=== PATIENT | female | born 1955 | race Caucasian/White ===

== ENCOUNTER → 2019-02-09 16:51 | Outpatient (CLI) | payer OTHER, SELFPAY ==
--- NOTE | 2019-02-09 16:54 | DI.RAD.S_ITS ---
PROCEDURE: XR LUMBAR SPINE 2-3V INDICATIONS: lbp TECHNIQUE: 3 views of the lumbar spine were acquired. COMPARISON: None. FINDINGS: Bones: 5 [id number] vertebrae are present. There is normal bony alignment. No vertebral body compression fractures. No suspicious bony lesions. Mild degenerative disease seen from thoracolumbar junction inferiorly to the L5-S1 level where moderate such degeneration is present. Facet osteoarthritis from L4-5 through L5-S1 is moderate. There is potential for mild spinal and foraminal stenosis at L5-S1. Soft tissues: Overlying bowel gas pattern is normal. No suspicious soft tissue calcifications. IMPRESSION: Potential for mild spinal and foraminal stenosis due to the degenerative changes discussed above at L5-S1 but more superiorly nerve root impingement would not be suspected. Dictated by: Gray Castaneda M.D. on 02/09/2019 at 17:37 Approved by: Gray Castaneda M.D. on 02/09/2019 at 17:38
== END ==
PROVIDERS: PCP Family Medicine; Visit Provider Family Medicine
DX: R29.898 Other symptoms and signs involving the musculoskeletal system (principal)
CPT/HCPCS: 72100

== ENCOUNTER → 2019-02-15 19:48 | Outpatient (CLI) | payer OTHER, SELFPAY ==
--- NOTE | 2019-02-15 19:51 | DI.RAD.S_ITS ---
PROCEDURE: XR KNEE LT 3V INDICATIONS: bilateral knee pain TECHNIQUE: 3 views of the knee were acquired. COMPARISON: None. FINDINGS: Bones: No fractures or dislocations. No suspicious bony lesions. There is mild to moderate tricompartmental degenerative joint disease. Soft tissues: No joint effusion. No suspicious soft tissue calcifications. IMPRESSION: Mild to moderate degenerative joint disease. Dictated by: Magda Jensen M.D. on 02/16/2019 at 9:54 Approved by: Magda Jensen M.D. on 02/16/2019 at 9:55
--- NOTE | 2019-02-15 19:51 | DI.RAD.S_ITS ---
PROCEDURE: XR KNEE RT 3V INDICATIONS: bilateral knee pain TECHNIQUE: 3 views of the knee were acquired. COMPARISON: None. FINDINGS: Bones: No fractures or dislocations. No suspicious bony lesions. There is severe tricompartmental degenerative joint disease. Soft tissues: Small joint effusion. No suspicious soft tissue calcifications. IMPRESSION: Severe degenerative joint disease. Dictated by: Magda Jensen M.D. on 02/16/2019 at 9:45 Approved by: Magda Jensen M.D. on 02/16/2019 at 9:54
== END ==
PROVIDERS: PCP Family Medicine; Visit Provider Nurse Practitioner
DX: M25.561 Pain in right knee (principal); M25.562 Pain in left knee; M17.0 Bilateral primary osteoarthritis of knee
CPT/HCPCS: 73562

== ENCOUNTER → 2019-11-25 12:20 | Outpatient (CLI) | payer OTHER, SELFPAY ==
--- NOTE | 2019-11-25 12:22 | DI.US.S_ITS ---
PROCEDURE: US PERIPH VENOUS LOW EXTREM LT INDICATIONS: LEFT LOWER LEG SWELLING PAIN TECHNIQUE: Real-time imaging, as well as color and pulse Doppler interrogation, were performed of the lower extremity deep veins from the inguinal ligament to the popliteal fossa. COMPARISON: None. FINDINGS: The common femoral, femoral and popliteal veins are normally compressible, and free of intraluminal thrombus. Color and pulse Doppler demonstrate normal phasic intraluminal flow. There is normal augmentation response to distal compression maneuver. 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 IMPRESSION: 1. No evidence of left lower extremity deep vein thrombosis. 2. Moderate to large Chan's cyst. Dictated by: Nick Flanagan M.D. on 11/25/2019 at 12:30 Approved by: Nick Flanagan M.D. on 11/25/2019 at 12:31
== END ==
PROVIDERS: PCP Family Medicine; Visit Provider Family Medicine
DX: M79.89 Other specified soft tissue disorders (principal); M79.605 Pain in left leg; L81.9 Disorder of pigmentation, unspecified; M71.22 Synovial cyst of popliteal space [Baker], left knee
CPT/HCPCS: 93971

== ENCOUNTER → 2021-03-17 13:06 | Outpatient (CLI) | payer OTHER, SELFPAY ==
--- NOTE | 2021-03-17 13:08 | DI.MG.S_ITS ---
BILATERAL DIGITAL SCREENING MAMMOGRAM 3D/2D WITH CAD: 03/17/2021 CLINICAL: Routine screening. Comparison is made to exams dated: 11/25/2012 mammogram, 11/12/2014 mammogram, and 01/24/2017 mammogram - [facility]. There are scattered fibroglandular elements in both breasts. Current study was also evaluated with a Computer Aided Detection (CAD) system. No significant masses, calcifications, or other findings are seen in either breast. There has been no significant interval change. IMPRESSION: NEGATIVE There is no mammographic evidence of malignancy. A 1 year screening mammogram is recommended. This exam was interpreted at Station ID: [id number]. NOTE: For mammograms, a report in lay terms will be sent to the patient. Approximately 15% of breast malignancies will not be visualized mammographically. In the management of a palpable breast mass, a negative mammogram must not discourage biopsy of a clinically suspicious lesion. Electronically Signed By: Hao nance/heidy:03/19/2021 07:39:44 letter sent: Normal Exam ACR BI-RADS Category 1: Negative [id number]
== END ==
PROVIDERS: PCP Family Medicine; Referring Provider Family Medicine; Visit Provider Family Medicine
DX: Z12.31 Encounter for screening mammogram for malignant neoplasm of breast (principal)
CPT/HCPCS: 77063; 77067

== ENCOUNTER → 2021-05-01 08:30 | Outpatient (CLI) | payer OTHER, SELFPAY ==
[2021-05-01 09:41] LABS: Add Manual Diff / Slide Review NO; Basophils Absolute Auto 0 /uL (0-100); Basophils Percent Auto 0.2 % (0-2); Eosinophils Absolute Auto 300 /uL (0-450); Eosinophils Percent Auto 4.3 % (2-4); Hematocrit 40.5 % (36-46); Hemoglobin 13.5 g/dL (12.0-16.0); Lymphocytes Absolute Auto 1800 /uL (1100-4500); Lymphocytes Percent Auto 26.4 % (25-40); Mean Corpuscular HGB Conc 33.4 % (30-36); Mean Corpuscular Hemoglobin 29.9 PG (26-34); Mean Corpuscular Volume 89.5 fL (80-100); Monocytes Absolute Auto 600 /uL (0-900); Monocytes Percent Auto 9.4 % (3-14); Neutrophils Absolute Auto 4100 /uL (1500-7000); Neutrophils Percent Auto 59.7 % (50-75); Platelet Count 388 X10^3/uL (150-400); Red Blood Cell Count 4.53 X10^6/uL (4.0-5.2); Red Cell Distribution Width 13.9 % (11.6-14.8); White Blood Cell Count 6.8 X10^3/uL (4.5-11.0)
[2021-05-01 10:18] LABS: Hemoglobin A1C% w Est Avg Glu 5.3 % (4.0-6.0)
[2021-05-01 10:57] LABS: BUN Creatinine Ratio 29.5 (6-22); Blood Urea Nitrogen 18 mg/dL (7-17); Carbon Dioxide 30 mmol/L (22-32); Chloride 104 mmol/L (98-107); Estimated Glomerular Filt Rate > 60.0 mL/min (>60); Glucose 97 mg/dL (80-110); HEMOLYSIS < 15 (0-50); Potassium 4.5 mmol/L (3.4-5.1); Sodium 140 mmol/L (137-145)
== END ==
PROVIDERS: PCP Family Medicine; Referring Provider Orthopaedic Surgery Adult Reconstructive Orthopaedic Surgery; Visit Provider Orthopaedic Surgery Adult Reconstructive Orthopaedic Surgery
DX: Z01.818 Encounter for other preprocedural examination (principal); Z01.812 Encounter for preprocedural laboratory examination; R73.9 Hyperglycemia, unspecified
CPT/HCPCS: 36415; 80048; 83036; 85025; 93005

== ENCOUNTER → 2021-05-14 08:01 | Outpatient (CLI) | payer OTHER, SELFPAY ==
[2021-05-14 10:52] LABS: COVID19 -Nasal RAPID Negative (Negative)
== END ==
PROVIDERS: PCP Family Medicine; Visit Provider Student in an Organized Health Care Education/Training Program
DX: Z01.812 Encounter for preprocedural laboratory examination (principal); Z20.822 Contact with and (suspected) exposure to COVID-19
CPT/HCPCS: 87635

== ENCOUNTER 2021-05-16 09:34 | Observation (INO) | payer OTHER, SELFPAY ==
[2021-05-08 11:57] VITALS: BMI 24.3
[2021-05-16] VITALS (14 sets, daily range): BP systolic 110–165; BP diastolic 58–86; PULSE 73–98; RESP 12–18; TEMP 36.1–37.3; O2SAT 97–100; BMI 24.5
--- NOTE | 2021-05-16 | DI.RAD.S_ITS ---
PROCEDURE: XR KNEE RT 1TO2V INDICATIONS: post op total knee TECHNIQUE: 2 view(s) of the knee acquired. COMPARISON: [facility], CR, XR KNEE LT 3V, 02/15/2019, 19:56. FINDINGS: Bones: Patient is status post knee joint arthroplasty. Hardware components are in expected positions. Visualized bony structures are intact. Soft tissues: Overlying postoperative changes are noted. IMPRESSION: Postop changes from right total knee arthroplasty with anatomic right knee alignment. Dictated by: Humberto Huggins M.D. on 05/16/2021 at 13:39 Approved by: Humberto Huggins M.D. on 05/16/2021 at 13:40
[2021-05-16] MEDS: LACTATED RINGERS 1,000 ML 42 ML IV ×2 (10:12→13:08)
--- NOTE | 2021-05-16 10:47 | PM.PREOP ---
Pre-operative Note COVID-19 COVID-19 status: Negative Result date/Date tested (Pos, Neg/Pending): 05/14/21 Interval Note History & Physical reviewed/Exam performed by Physician: Yes Changes to H&P: No H&P completed within 30 days and has changed as indicated here:: Plan for R TKA
[2021-05-16] MEDS: TRANEXAMIC ACID 1,000 MG VIAL 2000 MG INJ (11:35)
--- NOTE | 2021-05-16 11:45 | SUR.OPER ---
Supine on padded OR bed. Pillow under head, arms secured on padded armboards <90 degree abduction. Safety belt across torso. Non-operative leg secured with tape over blanket over lower leg. Operative leg under control of surgeon on foam padded positioner. Foam padded brace at thigh of operative leg.
[2021-05-16] MEDS: ROPIVACAINE 0.5% PF 5 MG/ML 20ML VIAL 60 ML INJ (11:52)
[2021-05-16] MEDS: CEFAZOLIN 1 GM VIAL 2 GM IV ×2 (11:52→20:48)
[2021-05-16] MEDS: KETOROLAC 30 MG/ML VIAL IV (11:53)
[2021-05-16] MEDS: MORPHINE 4 MG/ML INJ INJ (11:53)
[2021-05-16] MEDS: ACETAMINOPHEN IV 1,000 MG/100 ML VIAL 400 MG IV (11:57)
[2021-05-16] MEDS: SODIUM CHLORIDE IRRIG SOLUTION 250 ML, POVIDONE-IODINE SPONGE STICKS 1 APPLIC IRR (11:58)
--- NOTE | 2021-05-16 13:18 | SUR.PHASEI ---
Received to PACU after general/spinal anesthesia. Oral airway in place. No further airway assistane required. Report received from Dr Weber and BABITA Caputo.
--- NOTE | 2021-05-16 13:32 | SUR.PHASEI ---
Oral airway out at 1320. Pt awake and alert. Pt is [place]. She states that she left her hearing aides at home.
--- NOTE | 2021-05-16 13:46 | P.OP_ITS ---
Operative Date/Time/Diagnoses Date of procedure: 05/16/21 Time of procedure: 13:47 Pre-op diagnosis: right knee OA Post-op diagnosis: same Procedure & Clinicians Procedure: Right total knee arthroplasty Same procedure as scheduled: Yes Indications: Right knee osteoarthritis resistant to further conservative measures. Surgeon: Shaka No Human Resources Operations Manager: Jacky Zuniga Anesthesia Type: General and Spinal Operative Notes Findings: Right knee osteoarthritis with [id number] articulation of the lateral compartment. Overall valgus alignment. Large osteophytes. Closure Type: primary Prosthetic devices, grafts, tissues, transplants, or devices: [place] and nephew Journey 2 size 4, right CR Oxinium femoral Journey size 4, right tibial base plate Size 3-4, right 10 mm thick Journey 2 polyethylene deep dish 29 mm oval Tonia 2 patellar button Estimated Blood Loss (mL): 50 Tourniquet time (min): 47 Procedure in detail: Patient was met in the preoperative holding area where the site and side of surgery marked by MD. Informed consent had been reviewed and signed in clinic but was also reviewed in the preoperative holding area and all last minute questions were answered. Patient was then brought back in the operating room where she was transferred onto the operating room table and induced under general anesthesia. A nonsterile tourniquet was then placed on the left thigh and the left lower extremity was then prepped and draped normal sterile fashion. A surgical time- out was performed verifying the site and side of surgery as well as the the patient. A Esmarch was then used to exsanguinate the right lower extremity the tourniquet was inflated 250 mmHg. A longitudinal incision was made in the skin with a 10. Blade a new 10. Blade was then used to elevate medial lateral flaps. The medial parapatellar arthrotomy was then marked and cut with a 10. Blade. The patella was then everted office fat pad was removed and a medial peel of the MCL was then performed which was minimal in nature she has overall valgus alignment of the extremity this point large amount of reactive synovitis was encountered this was removed using electrocautery. Osteophytes about the femur and patella were also removed. Remnant of the ACL was removed and the lateral meniscus was removed. Whitesides line was then marked using electrocautery as well as the entry site for the femoral drill and the tibial drill respective drill was then used to enter the femoral and tibial canals. Intramedullary cherie was then placed inside the femur and a distal femoral cutting jig was then placed. This was pinned in the neutral slot. This was then backed off 2 mm to take 2 extra mm of the distal femoral cut. Next the cherie was removed from the femur placed inside the tibia the out rigger chief was then used to pin the jig into place varus valgus al ignment was confirmed with a drop cherie. It was then pinned into place tibial cut was then made with the oscillating saw. Tibial cut was then removed as well as the remnant of the medial meniscus. The extension block was tighter on the lateral space I then pie crusted the lateral ITB band to fix the varus valgus alignment. The knee was then brought into full extension and 9 mm extension block fit well. There was no excess laxity in varus valgus. The knee was then brought into flexion the gap merchandise marker was then used and the rotation was then marked and drilled. The gap merchandise marker was then removed and the Sizer was placed sized to a size 4. The 5 in 1 cutting block for the size 4 femur was then malleted into place and pinned. Five cuts were then made sequentially. The jig was then removed and the trial femoral component was malleted into place and the condylar cut was then made. A size 4 tibial base plate with a 9 mm thick CR was then placed this was noted to be a little bit loose in flexion extension we then upsized to a 10 mm thick polyethylene which had good stability in full extension throughout mid flexion flexion range of motion. The patella was then freehand cut sized to 29 mm patellar button this was then drilled and a patellar button trial was then placed knee was brought through range of motion with good patellar tracking. Tibial base plate rotation was marked using a floating technique. Trial components were then removed periarticular anesthetic injection was then performed throughout the knee including the posterior aspect of the knee. The tibia base plate was then replaced and pinned into place and drilled and punched for the keel. Bony fragments were then placed inside the tibial canal as well as the femoral drill hole. Pulse lavage was then used to clean the cut surface of the femur tibia and patella. Cement was then mixed. The tibia was then thoroughly dried and cement was then finger packed into the keel hole as well as the cut surface of the tibia is some was placed on the undersurface of the tibial base plate malleted into place. All excess cement was removed. Cement was then placed onto the cut surface of the femur with exception of the posterior condylar cut cement was placed on the feet of the femoral component malleted into place all excess cement was removed. A size 10 mm thick CR polyethylene trial was then placed the knee was brought into full extension ankle was internally rotated cement was then finger packed onto the cut surface of the patella as well as between the patellar pegs on the button. This was then clamped into place excess cement was removed. Tourniquet was let down at 47 minutes Betadine solution was then placed in the wound and the knee was held in full extension with the ankle internally rotated until cement was fully cured once this was done pulse lavage normal saline was used to thoroughly irrigate the knee hemostasis was achieved using electrocautery. A 10 mm thick deep dish polyethylene was then placed make sure the medial lateral locking mechanisms were well engaged. The medial parapatellar arthrotomy was then closed using 1. Vicryl interrupted fashion followed by a running Quill suture followed by 2 Vicryl interrupted fashion the subcutaneous layer followed by running 3-0 Stratafix in a subcuticular layer followed by Dermabond and Aquacel dressing. Post-operative Condition: stable Disposition: PACU Plan for aftercare: 24 hours postop antibiotics, weightbearing as tolerated lower extremity, aspirin 81 mg b.i.d. for 6 weeks for DVT prophylaxis.
--- NOTE | 2021-05-16 13:57 | SUR.PHASEI ---
Pt transferred to room 213 with belongings bag. Received in room by BABITA Wetzel and BABITA Samson. VSS. Dressing remains D/I.
--- NOTE | 2021-05-16 14:59 | PC.NURSE ---
Received from pacu 66yr old female s/p rt tka. Dressing w/aquacel and margarita wrap over the top is c/d/i. Denies any pain. Had duramorph spinal and does feel a little itchy at her nose. Can move toes but has decreased sensation. ppp, feet =/warm, brisk cap refill. pacu called for epidural orders. Does have regular post-op orders. Lungs are clear, taking fluids w/out nausea. Is [place] and dtr is to bring in her hearing aids. Scd's placed, call light given and instructed. Resting quietly at this moment.
--- NOTE | 2021-05-16 15:45 | PT.IIE ---
Current Diagnoses Unilateral primary osteoarthritis, right knee (05/16/21) Surgery Performed Operation Date: 05/16/21 11:15 Actual Procedures p Total Knee Arthroplasty(Right) - Shaka No MD Surgical History (Last Reviewed 04/11/21 @ 09:14 by Chase Gallo MD) Anesthesia Cataracts, bilateral Medical History (Last Updated 05/08/21 @ 12:18 by Anali Medina RN) Abnormal chest x-ray COVID-19 (02/19/21) Diverticulosis GERD (gastroesophageal reflux disease) Headache Hearing loss Hyperlipidemia Hypertension Osteoarthritis Seasonal allergies Physical Therapy Inpatient Evaluation/Re-Eval M1 PT/OT-IP Prior Functional Status Start: 05/16/21 17:47 Freq: NEEDED Status: Active Protocol: Document 05/16/21 15:45 AB (Rec: 05/16/21 18:05 AB [id number]) Medical Review Prior Functional Status Medical History Reviewed Yes Communication able to make needs known; pt is [place] Mobility and Gait pt stated that she is independent with all mobilities and ambulation without AD Social History Household Members family Living Arrangements House Number of Floors (Floors) One Floor Number of Stairs To Enter/Railing? 2 steps to enter without rails + 1 step to enter house Home Environment Standard Height Toilet,Tub/ Shower Home Equipment Four Wheel Walker,Quad Cane Additional Social History Comment pt's son and grand daughter will be assisting pt pt stated that her daugther will be able to get a RTS with armsrests and a FWW for her; pt's daughter in room and confirmed M2 PT-IP Current Condition Start: 05/16/21 17:47 Freq: NEEDED Status: Active Protocol: Document 05/16/21 15:45 AB (Rec: 05/16/21 18:05 AB [id number]) Physical Therapy Current Condition Current Condition Evaluation Date 05/16/21 Treatment Diagnosis s/p R TKA; difficulty in walking Onset Date 05/16/21 Weight Bearing Status Weight Bearing Status Weight Bear as Tolerated Allowed Weight Bearing Amount (enter % RLE WBAT or #) (%) M3 PT-IP Subjective Start: 05/16/21 17:47 Freq: NEEDED Status: Active Protocol: Document 05/16/21 15:45 AB (Rec: 05/16/21 18:05 AB [id number]) Subjective Physical Therapy Visit Type Type Initial Evaluation Visit Start Time 15:45 Visit Stop Time 16:25 Total Visit Minutes 40 Number of PRIMER SUPERVISOR Visits 0 Physical Therapy Visit Comments Patient Comments agreeable to do PT Therapy Pain Assessment Pain Present Pain Present Denied Pain M4 PT-IP Mobility and Gait Start: 05/16/21 17:47 Freq: NEEDED Status: Active Protocol: Document 05/16/21 15:45 AB (Rec: 05/16/21 18:05 AB [id number]) PT-Bed Mobility Assessment Supine to Sit Supine to Sit Standby Assistance Sit to Supine Sit to Supine Minimal Assistance PT-Transfer Assessment Sit to and From Stand Sit to and from Stand Minimal Assistance,Moderate Assistance,1 Person Assistance ,Use of Upper Extremities Equipment Transfer Assistive Device Gait Belt,Front Wheeled Walker Orthotic/Prosthetic Devices or Brace: No Comments Mobility Comments completed supine to sit SBA. pt was able to sit on EOB SBA. completed sit to stand from EOB x 2 attempts and max cues for techniques. ambulated in room using FWW ~ 10 ft mod A and cues for R quads activation. assisted back to bed. completed sit to supine min A and cues. positioned pt on bed. call light and table placed within reach. post-op folder provided and reviewed. set up caregiver training with pt's daughter and daughter stated that she plans to being in the hospital tomorrow at 8 am and agreed with caregiver training whenever pt is sched for PT. Gait Assessment Gait Gait Assistance Required: Moderate Assistance,1 Person Assist Distance (Feet) 10 Assistive Devices Assistive Device Gait Belt,Front Wheeled Walker Orthotic/Prosthetic Devices or Brace: No Gait Deviations General Gait Pattern Antalgic,Decreased Stride Length,Decreased Feet Clearance Factors Limiting Gait Function Factors Limiting Gait Function Decreased Activity Tolerance, Decreased Sensation,Decreased Strength,Difficulty Following Directions,Limited Range of Motion,Poor Balance,Poor Safety Awareness PT-Balance Assessment Sitting Balance and Reactions Static Sitting Balance Ability Good Dynamic Sitting Balance Ability Good Standing Balance and Reactions Static Standing Balance Ability Fair Dynamic Standing Balance Ability Fair Device Used FWW M5 PT-IP Objective Assessments Start: 05/16/21 17:47 Freq: NEEDED Status: Active Protocol: Document 05/16/21 15:45 AB (Rec: 05/16/21 18:05 AB [id number]) Orientation Orientation/Cognition Level of Alertness Alert Orientation Name,Place,Situation Language Function Ability No Deficits Noted Safety Awareness Decreased Safety Awareness Gross Range of Motion Lower Extremity ROM Assessment Right Impaired Impairments R knee flexion: ~ 40 deg Strength Lower Extremity Strength Assessment Right Impaired Hip 4-/5 Knee 3+/5 Sensation Assessment Sensation Sensation Description Numbness Comments Sensation Comments c/o partial numbness on R LE Muscle Tone Muscle Tone WNL Yes M6 PT-IP Treatment Start: 05/16/21 17:47 Freq: NEEDED Status: Active Protocol: Document 05/16/21 15:45 AB (Rec: 05/16/21 18:05 AB [id number]) Physical Therapy Treatment Education Education Provided Precautions,Weight Bearing Status,Post-Op Packet,Safety M7 PT-IP Assessment and Plan Start: 05/16/21 17:47 Freq: NEEDED Status: Active Protocol: Document 05/16/21 15:45 AB (Rec: 05/16/21 18:05 AB [id number]) PT Summary Assessment and Plan Potential Rehabilitation Potential Good Status of Condition at Evaluation Evolving Summary Impairments Pain,ROM,Strength,Balance, Coordination,Sensation,Tone, Cognition,Bed Mobility, Transfers,Gait,Activity Tolerance Assessment Summary pt requiring mod A with standing and ambulation using FWW. will conduct caregiver training tomorrow with pt and pt's daughter. pt plans to have family at home to assist her. pt stated that she has outpt PT set up. will continue to assess progress for safe d/c plan. Goals Bed Mobility Goal Standby Assistance Transfer Goal Standby Assistance,Front Wheeled Walker Gait Goal Standby Assistance,Front Wheel Walker Gait Distance 150 Other Goals up/down 2 steps using quad cane/WINE CELLAR WORKER CGA up/down 1 platform step using FWW CGA Days to Meet Goals 5 Frequency of Treatment Frequency Of Treatment Twice a Day Treatment Plan Physical Therapy Treatment Plan Bed Mobility Training,Transfer Training,Gait Training, Therapeutic Exercise,Balance Retraining,Post Op Education, Discharge Planning,Hot or Cold Pack,Neuromuscular Re-ed, Coordination Retraining,Manual Therapy Other Recommendations and Next Treatment caregiver training: daughter Focus available after 8 am Precautions Other Precautions RLE WBAT Recommendations To Nursing Amount of Assist Needed 1 Person Assist Discharge Recommendations PT Discharge Recommendations Home with Assistance, Outpatient PT Equipment Needed for Home Before FWW Discharge Transportation Needs at Discharge Private Vehicle
[2021-05-16] MEDS: IBUPROFEN 400 MG TABLET PO ×2 (16:13→20:48)
[2021-05-16] MEDS: diphenhydrAMINE 50 MG/ML VIAL 25 MG IV (16:13)
[2021-05-16] MEDS: FAMOTIDINE 20 MG TABLET PO (16:13)
[2021-05-16] MEDS: ACETAMINOPHEN 325 MG TABLET 650 MG PO ×2 (16:13→20:48)
[2021-05-16] MEDS: NALOXONE 0.4 MG/ML VIAL 0.1 MG IV (16:14)
[2021-05-16] MEDS: LACTATED RINGERS 1,000 ML 100 ML IV (16:27)
[2021-05-16] MEDS: DOCUSATE 100 MG CAPSULE PO (20:48)
[2021-05-16] MEDS: ASPIRIN EC 81 MG TABLET PO (20:49)
[2021-05-16] MEDS: OXYCODONE IR 10 MG TABLET PO (20:52)
[2021-05-16] MEDS: HYDROMORPHONE 0.5 MG INJ 0.2 MG IV (22:54)
[2021-05-17] MEDS: hydrOXYzine pamoate 25 MG CAPSULE PO ×2 (00:38→08:15)
[2021-05-17] MEDS: IBUPROFEN 400 MG TABLET PO ×4 (00:38→11:57)
--- NOTE | 2021-05-17 01:12 | PC.NURSE ---
0015 Pt. C/o pruritus reported Benadryl not effective for itching. Dr. Singh notified with patient complaint order received to give 25-50 mg. of Vistaril PO. Administered @ 0038, will monitor.
[2021-05-17] MEDS: HYDROMORPHONE 0.5 MG INJ 0.2 MG IV ×2 (01:23→04:43)
[2021-05-17] MEDS: LACTATED RINGERS 1,000 ML 100 ML IV (01:59)
[2021-05-17 03:00] VITALS: BP 153/73; PULSE 95; RESP 18; TEMP 37.2; O2SAT 99
[2021-05-17] MEDS: OXYCODONE IR 10 MG TABLET PO ×2 (03:36→06:27)
[2021-05-17] MEDS: CEFAZOLIN 1 GM VIAL 2 GM IV (04:19)
[2021-05-17] MEDS: SODIUM CHLORIDE 0.9% FLUSH 10 ML IV ×2 (06:29→10:04)
[2021-05-17 07:00] VITALS: BP 124/79; PULSE 95; RESP 18; TEMP 36.6; O2SAT 95
[2021-05-17 07:40] LABS: Hematocrit 31.5 % (36-46); Hemoglobin 10.7 g/dL (12.0-16.0)
[2021-05-17] MEDS: PSEUDOEPHEDRINE 30 MG TABLET 60 MG PO (08:15)
[2021-05-17] MEDS: hydroCHLOROthiazide 25 MG TABLET PO (08:15)
[2021-05-17] MEDS: DOCUSATE 100 MG CAPSULE PO (08:15)
[2021-05-17] MEDS: ASPIRIN EC 81 MG TABLET PO (08:16)
[2021-05-17] MEDS: LOSARTAN 50 MG TABLET PO (08:16)
[2021-05-17] MEDS: ATORVASTATIN 20 MG TABLET PO (08:17)
[2021-05-17] MEDS: BUTALB/APAP/CAFFEINE 50/325/40 TABLET 2 EACH PO ×2 (08:17→15:01)
[2021-05-17] MEDS: LORATADINE 10 MG TABLET PO (08:17)
--- NOTE | 2021-05-17 09:24 | P.DS_ITS ---
History of Present Illness History of Present Illness Date Patient Seen: 05/17/21 Time Patient Seen: 09:25 Chief complaint: OPB Narrative: Patient states her pain is moderate to severe. Denies fever or chills. No nausea or vomiting. Discharge Providers Provider Discharge Date: 05/17/21 Primary care physician: Chase Gallo MD Consults: 05/16/21 11:01 Consult to Anesthesiology Routine Comment: Consulting Provider: Anesthesiologist Reason for consultation: Regional block for post operative pain control 05/16/21 13:59 Consult to Discharge Planning Routine Comment: Consult to Physical Therapy Evaluate & Treat Comment: Physician Instructions: postop TKA protocol Consult to Respiratory Therapy Evaluate & Treat Comment: Physician Instructions: Evaluate and treat Discharge provider: Jacky Zuniga PA-C Summary Hospital Course Discharge Diagnosis: right knee OA Hospital Course: Right total knee arthroplasty Same procedure as scheduled: Yes Indications: Right knee osteoarthritis resistant to further conservative measures. Surgeon: Shaka No Senior Business Consultant: Jacky Zuniga Anesthesia Type: General and Spinal Operative Notes Findings: Right knee osteoarthritis with ombh-au-ipad articulation of the lateral compartment. Overall valgus alignment. Large osteophytes. Closure Type: primary Prosthetic devices, grafts, tissues, transplants, or devices: [place] and nephew Journey 2 size 4, right CR Oxinium femoral Journey size 4, right tibial base plate Size 3-4, right 10 mm thick Journey 2 polyethylene deep dish 29 mm oval Tonia 2 patellar button Estimated Blood Loss (mL): 50 Tourniquet time (min): 47 Patient admitted to the hospital for right total knee arthroplasty. Patient consented to the same. Patient taken to the operating room on May 16, 2021 for right total knee arthroplasty. Patient back in her room recovering well as in stable condition. Patient will mobilize with physical therapy. Discharge home today after physical therapy if safe for home environment. Exam Vital Signs (past 8 hours): - 05/17/21 03:00 05/17/21 07:00 Temperature 98.9 F 97.9 F Pulse Rate 95 H 95 H Respiratory Rate 18 18 Blood Pressure 153/73 H 124/79 Pulse Oximetry 99 95 Oxygen Delivery Method Room Air Oxygen Flow Rate 0 Objective Labs Result Diagrams: 05/17/21 06:09 Labs: Laboratory Results - last 24 hr 05/17/21 06:09 Hgb 10.7 L Hct 31.5 L PFSH Medical History (Updated 05/08/21 @ 12:18 by Anali Medina RN) Abnormal chest x-ray COVID-19 (02/19/21) Diverticulosis GERD (gastroesophageal reflux disease) Headache Hearing loss Hyperlipidemia Hypertension Osteoarthritis Seasonal allergies Surgical History Anesthesia Cataracts, bilateral History of colonoscopy History of endometrial ablation (~04/2003) History of esophagogastroduodenoscopy (EGD) History of hemorrhoidectomy (~09/2002) History of tonsillectomy Family History Father Heart disease Mother Suicide Brother Cancer Sister Melanoma Grandfather History of heart attack Grandmother Cancer Social History marital status: household members: family Smoking Status: Former smoker alcohol intake: current substance use type: does not use Discharge Assessment & Plan Assessment and Plan Assessment: Patient progressing as expected Plan of Treatment: Discharge home today in stable condition is safer home environment after physical therapy. Discharge Plan Discharge Plan Patient Disposition: Home Provider Discharge Comment: Discharge home after physical therapy Discharge orders & Medications Discharge Orders: Discharge (Order); Ordered 05/17/21 Ordered By: Jacky Zuniga Prescriptions: New acetaminophen 325 mg Tablet 650 mg PO TID Qty: 60 RF: 0 aspirin 81 mg Tablet,Delayed Release (Dr/Ec) 81 mg PO BID Qty: 60 RF: 0 ibuprofen 400 mg Tablet 400 mg PO Q4HR Qty: 60 RF: 0 oxycodone 5 mg Tablet 5 mg PO Q3HR PRN (Reason: Pain, Moderate (4-6)) Qty: 60 RF: 0 hydroxyzine pamoate 25 mg Capsule 25 mg PO Q4HR PRN (Reason: Itching) Qty: 60 RF: 0 polyethylene glycol 3350 17 gram Powder In Packet 17 g PO DAILY PRN (Reason: Constipation) Qty: 14 RF: 0 Continued atorvastatin 20 mg tablet 20 mg PO DAILY Qty: 90 RF: 3 losartan 50 mg tablet 50 mg PO DAILY Qty: 90 RF: 3 hydrochlorothiazide 25 mg tablet 25 mg PO DAILY Qty: 90 RF: 3 diazepam 10 mg tablet See Rx Instructions PO BID PRN (Reason: travel anxiety) Qty: 10 RF: 0 fenofibrate micronized 134 mg capsule See Rx Instructions .ROUTE .COMPLEX Qty: 90 RF: 3 loratadine [Allergy Relief (loratadine)] 10 mg tablet 10 mg PO DAILY RF: 0 ascorbic acid (vitamin C) 1,000 mg tablet 1 gram PO DAILY RF: 0 Caltrate 600 plus D 600 mg (1,500 mg)-800 unit tablet,chewable 1 tab PO DAILY RF: 0 psyllium powder 1 tsp PO DAILY RF: 0 cholecalciferol (vitamin D3) 2,000 unit capsule 2,000 unit PO DAILY RF: 0 Centrum Silver 400-250 mcg tablet,chewable 1 tab PO DAILY RF: 0 omeprazole 40 mg Capsule,Delayed Release(Dr/Ec) 40 mg PO DAILY RF: 0 famotidine 20 mg Tablet 20 mg PO QPM RF: 0 dstpeewaip-xfnlamoyaobqk-hysg [Esgic] 50-325-40 mg tablet 2 tab PO Q4-6H PRN (Reason: Migraines) RF: 0 pseudoephedrine HCl 30 mg Capsule 60 mg PO QAM RF: 0 Discontinued naproxen sodium [Aleve] 220 mg tablet 440 mg PO DAILY RF: 0 Follow up/Referrals: Chase Gallo MD [Primary Care Provider] - Shaka No MD [Physician] - (2 weeks) Diet/Activity/Treatments Diet: Diet as Tolerated Activity: Weight-bearing as tolerated Cold/Heat Therapy: Ice as needed Skin/Wound/Dressing Care Report to your healthcare provider any signs of infection, such as:: chills, fever, increased pain, unusual drainage and unusual redness Dressing: Keep dressing clean and dry Visit Report/Discharge Packet Instructions: DI for Knee Replacement, DI for Constipation, How to Prevent Falls Stand Alone Forms: Surgery Discharge Discharge Data Primary Care Provider: Chase Gallo Attending Provider: Shaka No Quality VTE Deep Vein Thrombosis/Pulmonary Embolism Present on Admission: No
--- NOTE | 2021-05-17 10:00 | PT.IPTN ---
Current Diagnoses Unilateral primary osteoarthritis, right knee (05/16/21) Surgery Performed Operation Date: 05/16/21 11:15 Actual Procedures p Total Knee Arthroplasty(Right) - Shaka No MD Physical Therapy Treatment Note M2 PT-IP Current Condition Start: 05/16/21 17:47 Freq: NEEDED Status: Active Protocol: Document 05/16/21 15:45 AB (Rec: 05/16/21 18:05 AB [email or web address]) Physical Therapy Current Condition Current Condition Evaluation Date 05/16/21 Treatment Diagnosis s/p R TKA; difficulty in walking Onset Date 05/16/21 Weight Bearing Status Weight Bearing Status Weight Bear as Tolerated Allowed Weight Bearing Amount (enter % RLE WBAT or #) (%) M3 PT-IP Subjective Start: 05/16/21 17:47 Freq: NEEDED Status: Active Protocol: Document 05/17/21 10:00 AB (Rec: 05/17/21 12:55 AB [email or web address]) Subjective Physical Therapy Visit Type Type Treatment Note Visit Start Time 10:00 Visit Stop Time 11:10 Total Visit Minutes 70 Number of MOLECULAR BIOLOGY DIRECTOR Visits 0 Physical Therapy Visit Comments Patient Comments pt c/o increase pain ; daughter and son in for caregiver training Therapy Pain Assessment Pain When Pain Assessed At Rest Pain Present Pain Present Pain Reported Location Right Knee Scale Used pain scale not stated Description Tightness Pain Management Techniques Apply Cold,Distraction, Modification of Treatment,Re- positioning,Timing of Activity with Medications M4 PT-IP Mobility and Gait Start: 05/16/21 17:47 Freq: NEEDED Status: Active Protocol: Document 05/17/21 10:00 AB (Rec: 05/17/21 12:55 AB [id number]) PT-Bed Mobility Assessment Supine to Sit Supine to Sit Standby Assistance Sit to Supine Sit to Supine Standby Assistance PT-Transfer Assessment Sit to and From Stand Sit to and from Stand Contact Guard Assistance,1 Person Assistance,Use of Upper Extremities Equipment Transfer Assistive Device Gait Belt,Front Wheeled Walker Orthotic/Prosthetic Devices or Brace: No Transfers Transfer Destination Bed,Chair Transfer Technique Stand Step Pivot Transfer Ability Level of Assist Contact Guard Assistance,Use of Upper Extremities Comments Mobility Comments pt sitting on chair and c/o increase knee pain today but agreed to do PT. completed heel slides prior to mobility. daughter and son in room for caregiver training but mainly her son with assist her. pt completed sit to stand with PT CGA and ambulated in room using FWW CGA ~ 20 ft. caregiver training conducted. educated pt's son on how to use safety belt and how to assist pt. son assisted pt with sit to stand and ambulated pt in room using FWW . also completed bed mobility SBA. educated son on how to assist pt with bed mobility when needed. son continues to require instructions and reminders on how to assist pt. . pt ambulated in the hallway ~ 50 ft using FWW with son assisting. stair climbing training conducted. PT demonstrated to pt and son on how to complete . PT initially assisted pt with up/down platform step using quad cane and pt required mod to max A. repeated again with pt's son assisting but PT also providing assist for stability . pt c/o increase pain. assisted pt back to her room. son has to be reminded again to assist pt and pt ambulated using FWW back to bed. completed sit to supine SBA. positioned pt in bed. educated pt on LE positioning. ice pack provided. call light and table placed within reach. set up another caregiver training at 130pm in the afternoon. informed nurse. pt's daughter also confirmed that she got a FWW for the pt. Gait Assessment Gait Gait Assistance Required: Contact Guard Assist,Minimum Assistance Distance (Feet) 50 Able to Maintain Weight Bearing Status Yes During Gait Assistive Devices Assistive Device Gait Belt,Front Wheeled Walker Orthotic/Prosthetic Devices or Brace: No Gait Deviations General Gait Pattern Antalgic,Decreased Stride Length,Decreased Feet Clearance,Flexed Trunk,Step-to Gait Factors Limiting Gait Function Factors Limiting Gait Function Decreased Activity Tolerance, Decreased Strength,Difficulty Following Directions,Limited Range of Motion,Pain,Poor Balance,Poor Safety Awareness Stair Climbing Assessment Evaluation Level of Assist On Stairs Moderate Assistance,Maximal Assistance,1 Person Assistance ,2 Person Assistance Devices Stair Climbing Assistive Devices Large Base Quad Cane Technique/Endurance Stair Climbing Direction Ascend and Descend Stair Climbing Technique Step to Step Number of Steps Climbed 1 Stair Climbing Set # Repetitions (reps) 2 M5 PT-IP Objective Assessments Start: 05/16/21 17:47 Freq: NEEDED Status: Active Protocol: Document 05/16/21 15:45 AB (Rec: 05/16/21 18:05 AB [id number]) Orientation Orientation/Cognition Level of Alertness Alert Orientation Name,Place,Situation Language Function Ability No Deficits Noted Safety Awareness Decreased Safety Awareness Gross Range of Motion Lower Extremity ROM Assessment Right Impaired Impairments R knee flexion: ~ 40 deg Strength Lower Extremity Strength Assessment Right Impaired Hip 4-/5 Knee 3+/5 Sensation Assessment Sensation Sensation Description Numbness Comments Sensation Comments c/o partial numbness on R LE Muscle Tone Muscle Tone WNL Yes M6 PT-IP Treatment Start: 05/16/21 17:47 Freq: NEEDED Status: Active Protocol: Document 05/17/21 10:00 AB (Rec: 05/17/21 12:55 AB [id number]) Physical Therapy Treatment Exercises Exercises Heel Slides Education Education Provided Weight Bearing Status,Safety M7 PT-IP Assessment and Plan Start: 05/16/21 17:47 Freq: NEEDED Status: Active Protocol: Document 05/17/21 10:00 AB (Rec: 05/17/21 12:55 AB [email or web address]) PT Summary Assessment and Plan Potential Rehabilitation Potential Fair Summary Impairments Pain,ROM,Strength,Balance, Coordination,Sensation,Tone, Cognition,Bed Mobility, Transfers,Gait,Activity Tolerance Progress Towards Goals Slow Progress due to Pain Assessment Summary caregiver training conducted and further training is needed . caregiver training set up later this after at 130 pm. pt plans to go home with her son to assist her. will continue to assess progress. Goals Bed Mobility Goal Standby Assistance Transfer Goal Standby Assistance,Front Wheeled Walker Gait Goal Standby Assistance,Front Wheel Walker Gait Distance 150 Other Goals up/down 2 steps using quad cane/HAND ALMOND BLANCHER CGA up/down 1 platform step using FWW CGA Days to Meet Goals 5 Frequency of Treatment Frequency Of Treatment Twice a Day Treatment Plan Physical Therapy Treatment Plan Bed Mobility Training,Transfer Training,Gait Training, Therapeutic Exercise,Balance Retraining,Post Op Education, Discharge Planning,Hot or Cold Pack,Neuromuscular Re-ed, Coordination Retraining,Manual Therapy Other Recommendations and Next Treatment caregiver traininpm 05/17 Precautions Other Precautions RLE WBAT Recommendations To Nursing Amount of Assist Needed 1 Person Assist Discharge Recommendations PT Discharge Recommendations Home with Assistance, Outpatient PT Transportation Needs at Discharge Private Vehicle
[2021-05-17] MEDS: OXYCODONE IR 5 MG TABLET 15 MG PO (10:02)
[2021-05-17 11:00] VITALS: BP 140/72; PULSE 90; RESP 18; TEMP 36.8; O2SAT 99
[2021-05-17] MEDS: HYDROMORPHONE 4 MG TABLET PO (11:56)
[2021-05-17] MEDS: hydrOXYzine pamoate 25 MG CAPSULE 50 MG PO (11:56)
[2021-05-17] MEDS: PANTOPRAZOLE DR 40 MG TABLET PO (12:12)
--- NOTE | 2021-05-17 13:30 | PT.IPTN ---
Current Diagnoses Unilateral primary osteoarthritis, right knee (05/16/21) Surgery Performed Operation Date: 05/16/21 11:15 Actual Procedures p Total Knee Arthroplasty(Right) - Shaka No MD Physical Therapy Treatment Note M2 PT-IP Current Condition Start: 05/16/21 17:47 Freq: NEEDED Status: Discharge Protocol: Document 05/16/21 15:45 AB (Rec: 05/16/21 18:05 AB [id number]) Physical Therapy Current Condition Current Condition Evaluation Date 05/16/21 Treatment Diagnosis s/p R TKA; difficulty in walking Onset Date 05/16/21 Weight Bearing Status Weight Bearing Status Weight Bear as Tolerated Allowed Weight Bearing Amount (enter % RLE WBAT or #) (%) M3 PT-IP Subjective Start: 05/16/21 17:47 Freq: NEEDED Status: Discharge Protocol: Document 05/17/21 13:30 AB (Rec: 05/17/21 16:37 AB [id number]) Subjective Physical Therapy Visit Type Type Treatment Note Visit Start Time 13:30 Visit Stop Time 14:06 Total Visit Minutes 36 Number of DECK SCALER Visits 0 Physical Therapy Visit Comments Patient Comments agreed to do PT; son and daughter in room Therapy Pain Assessment Pain When Pain Assessed At Rest Pain Present Pain Present Pain Reported Location Right Knee Intensity 3 Scale Used increases to 5/10 with mobility Pain Management Techniques Apply Cold,Elevation, Modification of Treatment,Re- positioning,Timing of Activity with Medications M4 PT-IP Mobility and Gait Start: 05/16/21 17:47 Freq: NEEDED Status: Discharge Protocol: Document 05/17/21 13:30 AB (Rec: 05/17/21 16:37 AB [id number]) PT-Bed Mobility Assessment Supine to Sit Supine to Sit Standby Assistance Sit to Supine Sit to Supine Standby Assistance PT-Transfer Assessment Sit to and From Stand Sit to and from Stand Contact Guard Assistance,1 Person Assistance,Use of Upper Extremities Equipment Transfer Assistive Device Gait Belt,Front Wheeled Walker Orthotic/Prosthetic Devices or Brace: No Transfers Transfer Destination Toilet Transfer Technique ambulated using FWW Transfer Ability Level of Assist Contact Guard Assistance,1 Person Assistance,Use of Upper Extremities Comments Mobility Comments caregiver training conducted. pt completed bed mobility supine to sit SBA. son was able to put safety belt on and assisted pt with sit to stand and ambulation to the toilet using FWW CGA. son was able to assist pt with standing balance and toilet needs. pt ambulated out of the toilet and rest on the chair. pt stated that he overdid it this morning and does not want to walk too far. son assisted pt to ambulate ~ 25 ft to the w/ c using FWW. stair climbing trainig: completed up/down platform step using quad cane with son/ daughter assisting pt and repeated again but with use of FWW. pt assisted back towards her room on a w/c. ambulated from w/c to chair using FWW CGA. son was able to assist. positioned pt on the chair. call light and table placed within reach. Pt and family have no other concerns Gait Assessment Gait Gait Assistance Required: Contact Guard Assist Distance (Feet) 25 Able to Maintain Weight Bearing Status Yes During Gait Assistive Devices Assistive Device Gait Belt,Front Wheeled Walker Orthotic/Prosthetic Devices or Brace: No Gait Deviations General Gait Pattern Antalgic,Decreased Stride Length,Decreased Feet Clearance,Step-to Gait Factors Limiting Gait Function Factors Limiting Gait Function Decreased Activity Tolerance, Decreased Strength,Difficulty Following Directions,Limited Range of Motion,Pain,Poor Balance,Poor Safety Awareness Stair Climbing Assessment Evaluation Level of Assist On Stairs Moderate Assistance,Maximal Assistance,1 Person Assistance ,2 Person Assistance Devices Stair Climbing Assistive Devices Large Base Quad Cane,Front Wheel Walker Technique/Endurance Stair Climbing Direction Ascend and Descend Stair Climbing Technique Step to Step Number of Steps Climbed 1 Stair Climbing Set # Repetitions (reps) 2 Comments Stair Climbing Comments pls refer to mobility section for details M5 PT-IP Objective Assessments Start: 05/16/21 17:47 Freq: NEEDED Status: Discharge Protocol: Document 05/16/21 15:45 AB (Rec: 05/16/21 18:05 AB [id number]) Orientation Orientation/Cognition Level of Alertness Alert Orientation Name,Place,Situation Language Function Ability No Deficits Noted Safety Awareness Decreased Safety Awareness Gross Range of Motion Lower Extremity ROM Assessment Right Impaired Impairments R knee flexion: ~ 40 deg Strength Lower Extremity Strength Assessment Right Impaired Hip 4-/5 Knee 3+/5 Sensation Assessment Sensation Sensation Description Numbness Comments Sensation Comments c/o partial numbness on R LE Muscle Tone Muscle Tone WNL Yes M6 PT-IP Treatment Start: 05/16/21 17:47 Freq: NEEDED Status: Discharge Protocol: Document 05/17/21 13:30 AB (Rec: 05/17/21 16:37 AB [id number]) Physical Therapy Treatment Education Education Provided Safety M7 PT-IP Assessment and Plan Start: 05/16/21 17:47 Freq: NEEDED Status: Discharge Protocol: Document 05/17/21 13:30 AB (Rec: 05/17/21 16:37 AB [id number]) PT Summary Assessment and Plan Potential Rehabilitation Potential Good Summary Impairments Pain,ROM,Strength,Balance, Coordination,Sensation,Tone, Cognition,Bed Mobility, Transfers,Gait,Activity Tolerance Progress Towards Goals Slow Progress due to Pain Assessment Summary caregiver training conducted and family was able to assist pt safely. pt has no other concerns and is comfortable going home. pt is set up with outpt PT. Goals Bed Mobility Goal Standby Assistance Transfer Goal Standby Assistance,Front Wheeled Walker Gait Goal Standby Assistance,Front Wheel Walker Gait Distance 150 Other Goals up/down 2 steps using quad cane/PIT [employer] AUXILIARIES SUPERVISOR CGA up/down 1 platform step using FWW CGA Days to Meet Goals 5 Frequency of Treatment Frequency Of Treatment Twice a Day Treatment Plan Physical Therapy Treatment Plan Bed Mobility Training,Transfer Training,Gait Training, Therapeutic Exercise,Balance Retraining,Post Op Education, Discharge Planning,Hot or Cold Pack,Neuromuscular Re-ed, Coordination Retraining,Manual Therapy Precautions Other Precautions RLE WBAT Recommendations To Nursing Amount of Assist Needed 1 Person Assist Discharge Recommendations PT Discharge Recommendations Home with Assistance, Outpatient PT Transportation Needs at Discharge Private Vehicle
--- NOTE | 2021-05-17 15:25 | PC.NURSE ---
Discharge: Pt reporting pain uncontrolled with oxycodone 15mg, was teary. Discussed w/PA Efrain again, trial of dilaudid. Pt reporting much better pain control, was able to work with PT and passed. PT also did client care manager training w/family. Pt reports she can d/c home now w/pain control. Seen by PA and given his instructions. PT gave their instructions. Reviewed d/c packet. Rx has been esent. Discussed meds. Questions answered. Pt d/c home via auto w/family.
--- NOTE | 2021-05-17 15:50 | CM.IDA ---
Initial DCP Assessment Note Pt is a 66 yo female, resident of [place], now POD#1 from Rt knee surgery w/ Dr No PCP: Chase Gallo Payer: Renny Reviewed chart, pt discussed in multidisciplinary rounds this morning. Therapy has cleared pt for return home w/family to assist and pt has planned for home, DC order from Ortho has already been initiated this morning. No needs expected from DC planning team although will remain available in case this changes today. AMERICA Mauricio
== END 2021-05-17 15:30 | disposition home or self-care (01) ==
LOC: OR 09:37 → AC 09:38
PROVIDERS: Admitting Provider Orthopaedic Surgery Adult Reconstructive Orthopaedic Surgery; PCP Family Medicine; Referring Provider Orthopaedic Surgery Adult Reconstructive Orthopaedic Surgery; Visit Provider Orthopaedic Surgery Adult Reconstructive Orthopaedic Surgery
PROC: 0SRC0JZ Replacement of Right Knee Joint with Synthetic Substitute, Open Approach (ICD-10-PCS; CPT 27447; principal; 2021-05-16 11:15)
DX: M17.11 Unilateral primary osteoarthritis, right knee (principal); M21.061 Valgus deformity, not elsewhere classified, right knee; M25.761 Osteophyte, right knee; I10 Essential (primary) hypertension; E78.5 Hyperlipidemia, unspecified; G43.909 Migraine, unspecified, not intractable, without status migrainosus; K21.9 Gastro-esophageal reflux disease without esophagitis
CPT/HCPCS: 27447; 36415; 73560; 85014; 85018; 94760; 97162; 97530; C1776; G0378; A9270; J0131; J0690; J1100; J1170; J1200; J1885; J2250; J2270; J2274; J2310; J2405; J2704; J3010

== ENCOUNTER → 2021-06-11 13:03 | Outpatient (CLI) | payer OTHER, SELFPAY ==
[2021-05-16 14:14] VITALS: BMI 24.5
[2021-06-11 15:30] LABS: COVID19 -Nasal RAPID Negative (Negative)
== END ==
PROVIDERS: PCP Family Medicine; Visit Provider Physician Assistant
DX: Z01.812 Encounter for preprocedural laboratory examination (principal); Z20.822 Contact with and (suspected) exposure to COVID-19
CPT/HCPCS: 87635

== ENCOUNTER → 2021-06-11 13:25 | Outpatient (CLI) | payer OTHER, SELFPAY ==
[2021-05-16 14:14] VITALS: BMI 24.5
[2021-06-11 13:45] LABS: Hematocrit 34.5 % (36-46); Hemoglobin 11.5 g/dL (12.0-16.0); Mean Corpuscular HGB Conc 33.4 % (30-36); Mean Corpuscular Hemoglobin 29.7 PG (26-34); Mean Corpuscular Volume 88.9 fL (80-100); Platelet Count 513 X10^3/uL (150-400); Red Blood Cell Count 3.89 X10^6/uL (4.0-5.2); Red Cell Distribution Width 13.7 % (11.6-14.8); White Blood Cell Count 9.5 X10^3/uL (4.5-11.0)
== END ==
PROVIDERS: PCP Family Medicine; Referring Provider Orthopaedic Surgery Adult Reconstructive Orthopaedic Surgery; Visit Provider Orthopaedic Surgery Adult Reconstructive Orthopaedic Surgery
DX: Z01.812 Encounter for preprocedural laboratory examination (principal); Z96.651 Presence of right artificial knee joint; Z20.822 Contact with and (suspected) exposure to COVID-19
CPT/HCPCS: 36415; 85027; 86140; 87635

== ENCOUNTER 2021-06-13 13:04 | Day surgery (SDC) | payer OTHER, SELFPAY ==
[2021-05-16 14:14] VITALS: BMI 24.5
[2021-06-11 13:41] VITALS: BMI 25.0
[2021-06-13] VITALS (8 sets, daily range): BP systolic 144–182; BP diastolic 78–99; PULSE 92–120; RESP 14–18; TEMP 36.7–37; O2SAT 97–100; BMI 25.0
--- NOTE | 2021-06-13 | DI.RAD.S_ITS ---
PROCEDURE: XR KNEE RT 1TO2V INDICATIONS: post op TECHNIQUE: To view(s) of the knee acquired. COMPARISON: [facility], , XR KNEE RT 1TO2V, 05/16/2021, 13:23. FINDINGS: Bones: Patient is status post knee joint arthroplasty. Hardware components are in expected positions. Visualized bony structures are intact. Soft tissues: Overlying postoperative changes are noted. IMPRESSION: Expected postsurgical change for right knee arthroplasty. Dictated by: Kasey Lovell MD, PhD on 06/13/2021 at 16:04 Approved by: Kasey Lovell MD, PhD on 06/13/2021 at 16:04
[2021-06-13] MEDS: LACTATED RINGERS 1,000 ML 84 ML IV (13:46)
--- NOTE | 2021-06-13 14:54 | PM.PREOP ---
Pre-operative Note COVID-19 COVID-19 status: Negative Result date/Date tested (Pos, Neg/Pending): 06/11/21 Interval Note History & Physical reviewed/Exam performed by Physician: Yes Changes to H&P: No H&P completed within 30 days and has changed as indicated here:: Plan for right knee ABELARDO, right knee aspiration
--- NOTE | 2021-06-13 14:56 | SUR.OPER ---
Supine on padded OR bed, head on pillow, arms secured on padded arm boards at <90 degrees abduction, legs uncrossed, safety belt at thigh, tape over blanket over lower legs.
--- NOTE | 2021-06-13 15:34 | PM.OP.1 ---
Operative Date/Time/Diagnoses Date of procedure: 06/13/21 Time of procedure: 15:34 Pre-op diagnosis: right knee arthrofibrosis s/p TKA Post-op diagnosis: same Procedure & Clinicians Procedure: Right knee manipulation under anesthesia, right knee aspiration. Same procedure as scheduled: Yes Indications: Right knee arthrofibrosis. Slow to progress with physical therapy in the postoperative window. Surgeon: Shaka No Click Yes if Unassisted: Yes Operative Notes Findings: Right knee arthrofibrosis. Range of motion from 2? short of full extension to 90? of flexion prior to manipulation. Estimated Blood Loss (mL): 0 Procedure in detail: Patient was met in the preop holding area where the site and side surgery marked by . Informed consent was reviewed the preoperative holding area all last minute questions were answered. Informed consent was signed. Patient was then brought back in the operating room where she was induced under general anesthesia. The superior lateral aspect of the knee was cleansed using ChloraPrep and a 18 gauge in a was insert and the knee and 6 cc of straw-colored synovial fluid were then aspirated. These were sent for culture and cell count. Range of motion check was performed. Under anesthesia she was 2? short of full extension to about 90? of flexion. This was against gravity. I then grabbed the thigh and quickly flex extend her hip so that the weighted lower leg balance the knee. I felt a subtle popping sensation and she had increased range of motion. Range of motion now is to about 120. Patient was then awoke from general anesthesia and taken to PACU. Post-operative Condition: stable Plan for aftercare: Postop x-ray, weight-bearing as tolerated right lower extremity. DC home from PACU.
[2021-06-13] MEDS: HYDROMORPHONE 2 MG INJ IV (15:45)
[2021-06-13 16:14] LABS: Body Fluid Red Blood Cells 12358 /uL; Body Fluid Tot Nucleated Cells 7987 /uL
[2021-06-13] MEDS: LABETALOL 20 MG/4 ML SYRINGE 10 MG IV (16:28)
[2021-06-13 16:33] LABS: Body Fluid Appearance CLOUDY; Body Fluid Clotted? NO CLOTS PRESENT; Body Fluid Color PINK
[2021-06-13 16:36] LABS: Eosinophils Body Fluid 0 %; Mononuclear WBC Body Fluid 16 %; Polynuclear WBC Body Fluid 84 %
== END 2021-06-13 17:03 | disposition home or self-care (01) ==
LOC: OR 13:06 → AC 13:06
PROVIDERS: PCP Family Medicine; Referring Provider Orthopaedic Surgery Adult Reconstructive Orthopaedic Surgery; Visit Provider Orthopaedic Surgery Adult Reconstructive Orthopaedic Surgery
PROC: (CPT 27570; principal; 2021-06-13 14:45)
DX: M24.661 Ankylosis, right knee (principal); Z96.651 Presence of right artificial knee joint; I10 Essential (primary) hypertension
CPT/HCPCS: 27570; 20610; 73560; 87070; 87075; 87205; 89051; J1170; J2250; J3010

== ENCOUNTER → 2021-09-17 09:36 | Outpatient (CLI) | payer OTHER, SELFPAY ==
[2021-08-01 13:10] VITALS: BMI 24.5
== END ==
PROVIDERS: PCP Family Medicine; Referring Provider Family Medicine; Visit Provider Family Medicine
DX: M85.851 Other specified disorders of bone density and structure, right thigh (principal); Z78.0 Asymptomatic menopausal state; Z87.891 Personal history of nicotine dependence
CPT/HCPCS: 77080

== ENCOUNTER → 2022-07-12 14:16 | Outpatient (CLI) | payer MEDICARE, SELFPAY ==
[2021-08-01 13:10] VITALS: BMI 24.5
== END ==
PROVIDERS: PCP Family Medicine; Visit Provider Registered Nurse
DX: R10.9 Unspecified abdominal pain (principal)
CPT/HCPCS: 87086

== ENCOUNTER → 2022-07-12 14:41 | Outpatient (CLI) | payer MEDICARE, SELFPAY ==
[2021-08-01 13:10] VITALS: BMI 24.5
--- NOTE | 2022-07-12 14:48 | DI.US.S_ITS ---
PROCEDURE: US RENAL COMPLETE INDICATIONS: left flank pain TECHNIQUE: Real-time scanning was performed of the kidneys and bladder, with image documentation. COMPARISON: None. FINDINGS: Kidneys: Kidneys are normal in size. Right kidney measures 10.5 cm long; left kidney measures 11.9 cm long. Right renal cortical thickness is 1.4 cm; left renal cortical thickness is 1 cm. Renal cortical echotexture is normal. No hydronephrosis or nephrolithiasis. No suspicious solid mass lesions. Left ovarian cyst measuring 5 x 3.7 x 3.7 cm. The cyst is anechoic with posterior through transmission and a calcification at the cyst wall or adjacent to the cyst wall. Bladder: Pre-void bladder volume is 369 mL. Post-void residual is 7 mL. Pre-void images demonstrate no intraluminal masses or stones. On pre-void images, both ureteral jets are noted with color Doppler interrogation. (Of note, ureteral jets may not be detectable in up to 25% of cases due to insufficient differences in specific gravity between ureteral and bladder urine). Miscellaneous: No free pelvic fluid. IMPRESSION: 1. No hydronephrosis. 2. Large possibly minimally complex left renal cyst measuring 5 cm. Consider further evaluation with CT abdomen pelvis with IV contrast. Dictated by: Josiah Cabrera M.D. on 07/12/2022 at 16:04 Approved by: Josiah Cabrera M.D. on 07/12/2022 at 16:06
== END ==
PROVIDERS: PCP Family Medicine; Referring Provider Registered Nurse; Visit Provider Registered Nurse
DX: R10.9 Unspecified abdominal pain (principal); Q61.01 Congenital single renal cyst
CPT/HCPCS: 76770; 87086

== ENCOUNTER 2022-07-14 17:17 | Emergency (ER) | payer MEDICARE, SELFPAY ==
[2021-08-01 13:10] VITALS: BMI 24.5
[2022-07-14] VITALS (9 sets, daily range): BP systolic 168–190; BP diastolic 90–111; PULSE 96–117; RESP 14–25; TEMP 36.1; O2SAT 98–100; BMI 25.4
--- NOTE | 2022-07-14 17:52 | DI.CT.S_ITS ---
PROCEDURE: CT ABDOMEN PELVIS W CON INDICATIONS: cyst seen on L kidney on US CT recommended TECHNIQUE: After the administration of intravenous contrast, axial sections acquired from the lung bases to the pubic symphysis. Coronal and sagittal reformats were performed. For radiation dose reduction, the following was used: automated exposure control, adjustment of mA and/or kV according to patient size. COMPARISON: None. FINDINGS: Image quality: Excellent. Lung bases: 3 mm nodule within left posterolateral lung base. Heart: No significant findings. ABDOMEN: Liver: Unremarkable. Gallbladder: Is mildly distended without evidence of wall thickening. Biliary ducts: Unremarkable. Pancreas: Unremarkable. Spleen: Unremarkable. Adrenal Glands: Unremarkable. Kidneys and Ureters: Bilateral renal cysts. Largest of these is within the left interpolar kidney anteriorly measuring 54 mm. Stomach and Bowel: Stomach, small bowel loops, and colon are unremarkable. Normal appendix. Peritoneum: No abnormal intraperitoneal fluid. No free air. Ventral Wall: No hernias. Abdominal Nodes: No retroperitoneal or mesenteric adenopathy by size criteria. Vessels: Aorta and inferior vena cava are normal in size. PELVIS: Pelvic Organs: Unremarkable. Bladder: Unremarkable. Pelvic Nodes: No enlarged lymph nodes. Miscellaneous: No hernias are seen. Bones: Unremarkable. IMPRESSION: 1. No acute process. 2. Normal appendix. 3. Left lower lobe base nodule. Further assessment with nonemergent outpatient follow-up chest CT with intravenous contrast is recommended. Dictated by: Robert Negron M.D. on 07/14/2022 at 19:08 Approved by: Robert Negron M.D. on 07/14/2022 at 19:10
[2022-07-14 18:03] LABS: Add Manual Diff / Slide Review NO; Basophils Absolute Auto 0 /uL (0-100); Basophils Percent Auto 0.3 % (0-2); Eosinophils Absolute Auto 200 /uL (0-450); Eosinophils Percent Auto 2.6 % (2-4); Hematocrit 41.7 % (36-46); Hemoglobin 14.6 g/dL (12.0-16.0); Lymphocytes Absolute Auto 2200 /uL (1100-4500); Lymphocytes Percent Auto 28.4 % (25-40); Mean Corpuscular Volume 88.5 fL (80-100); Monocytes Absolute Auto 800 /uL (0-900); Neutrophils Absolute Auto 4400 /uL (1500-7000); Neutrophils Percent Auto 57.7 % (50-75); Platelet Count 367 X10^3/uL (150-400); Red Blood Cell Count 4.71 X10^6/uL (4.0-5.2); Red Cell Distribution Width 13.2 % (11.6-14.8); White Blood Cell Count 7.6 X10^3/uL (4.5-11.0)
[2022-07-14 18:07] LABS: Alanine Aminotransferase 15 IU/L (<35); Albumin 4.7 g/dL (3.5-5.0); Albumin Globulin Ratio 1.6 (1.0-2.8); Alkaline Phosphatase 84 U/L (38-126); Aspartate Aminotransferase 23 IU/L (14-36); BUN Creatinine Ratio 20.4 (6-22); Bilirubin Total 0.5 mg/dL (0.2-1.3); Blood Urea Nitrogen 19 mg/dL (7-17); Calcium 10.3 mg/dL (8.4-10.2); Carbon Dioxide 29 mmol/L (22-32); Chloride 97 mmol/L (98-107); Estimated Glomerular Filt Rate > 60 mL/min (>60); Globulin 2.9 g/dL (1.7-4.1); Glucose 93 mg/dL (80-110); HEMOLYSIS < 15 (0-50); Lipase 65 U/L (23-300); Potassium 3.9 mmol/L (3.4-5.1); Sodium 136 mmol/L (137-145); Total Protein 7.6 g/dL (6.3-8.2)
[2022-07-14] MEDS: SODIUM CHLORIDE 0.9% 1,000 ML 1000 ML IV (18:27)
[2022-07-14 18:48] LABS: Appearance Urine UA CLEAR; Bilirubin Urine UA NEGATIVE (NEGATIVE); Color Urine UA YELLOW; Glucose Urine UA NEGATIVE (Negative); Ketones Urine UA NEGATIVE (NEGATIVE); Leukocyte Esterase Urine UA NEGATIVE (NEGATIVE); Nitrite Urine UA NEGATIVE (Negative); Occult Blood Urine UA NEGATIVE (Negative); Protein Urine UA NEGATIVE (Negative); Specific Gravity Urine UA <=1.005 (1.000-1.035); Urobilinogen Urine UA 0.2 E.U./dL (0.2)
--- NOTE | 2022-07-14 19:01 | ED_ITS ---
HPI - Abdominal Pain General Chief Complaint: Abdominal Pain Stated Complaint: left flank pain x4 days Time Seen by Provider: 07/14/22 17:51 Source: patient Mode of arrival: Family Vehicle History of Present Illness HPI narrative: 67-year-old female former smoker with history of hypertension, hyperlipidemia and Rodriguez's esophagus presents with a chief complaint of left flank pain for at least the past 4 days. She had been seen and evaluated on 07/12 at the walk- in clinic and had unremarkable urine and renal ultrasound mentioning a large left renal cyst. She has a CT scan ordered for tomorrow but was unable to make it. Additionally she states that she is had no bowel movement for 3 days. She states that at the moment she actually feels pretty well but is concerned because her pain seems to ramp up at night. She states that it seems to wrap around her left side and if anything causes some pins and needles and tingling sensation. She denies any obvious provocation or palliation. She admits that she is had a decreased appetite but denies any nausea or vomiting, she just states she is not hungry. She states a few days ago she had taken 1 of her Dilaudid that is left over from her knee replacement which helped her pain but she has been having trouble with her bowel since. She did take 1 dose of a stool softener earlier today but has not had any relief. She is passing gas. She denies any dysuria, frequency or urgency Related Data Home Medications Medication Instructions Recorded Confirmed ascorbic acid (vitamin C) 1,000 mg 1 gram PO DAILY 02/08/19 07/12/22 tablet calcium carbonate 600 mg-vitamin 1 tab PO DAILY 02/08/19 07/12/22 D3 20 mcg (800 unit) chewable tablet (Caltrate 600 plus D) cholecalciferol (vitamin D3) 50 2,000 unit PO DAILY 02/08/19 07/12/22 mcg (2,000 unit) capsule loratadine 10 mg tablet (Allergy 10 mg PO DAILY 02/08/19 07/12/22 Relief (loratadine)) multivit with min-folic 1 tab PO DAILY 02/08/19 07/12/22 acid-lutein 400 mcg-250 mcg chewable tablet (Centrum Silver) psyllium 1 tsp PO DAILY 02/08/19 07/12/22 pseudoephedrine HCl 30 mg capsule 60 mg PO QAM 05/08/21 07/12/22 Previous Rx's Medication Instructions Recorded aspirin 81 mg tablet,delayed 81 mg PO BID #60 tabs 05/17/21 release polyethylene glycol 3350 17 gram 17 g PO DAILY PRN Constipation #14 05/17/21 oral powder packet ea diazepam 10 mg tablet See Rx Instructions PO BID PRN 01/09/22 travel anxiety #10 tabs meclizine 25 mg tablet 25 mg PO DAILY PRN dizziness #30 01/09/22 tabs atorvastatin 20 mg tablet 20 mg PO DAILY #90 tabs 03/18/22 jusszfxbwf-lgqdbejiknxce-bkjaoppu 2 tab PO Q4-6H PRN Migraines #360 03/18/22 50 mg-325 mg-40 mg tablet (Esgic) tabs famotidine 20 mg tablet 20 mg PO QPM #90 tabs 03/18/22 fenofibrate micronized 134 mg See Rx Instructions .Route 03/18/22 capsule .COMPLEX #90 caps hydrochlorothiazide 25 mg tablet 25 mg PO DAILY #90 tabs 03/18/22 losartan 50 mg tablet 50 mg PO DAILY #90 tabs 03/18/22 omeprazole 40 mg capsule,delayed 40 mg PO DAILY #90 caps 03/18/22 release ketorolac 10 mg tablet 10 mg PO TID PRN pain #270 tabs 04/08/22 Allergies Allergy/AdvReac Type Severity Reaction Status Date / Time TITUS Inhibitors AdvReac Cough Verified 07/14/22 17:48 Review of Systems Review of Systems Narrative: GENERAL: See HPI HEENT: Denies sinus pain, ear pain, sore throat, difficulty swallowing, dizziness. RESPIRATORY: Denies dyspnea, cough, wheezing, hemoptysis, sputum. CARDIOVASCULAR: Denies chest pain, palpitations, orthopnea, edema, GASTROINTESTINAL: See HPI : Denies dysuria, frequency, incontinence, hematuria, urinary retention. MUSCULOSKELETAL: denies weakness, joint pain, or bony pain SKIN: Denies rash, skin lesions, or other NEUROLOGIC: Denies weakness, headache, numbness, change in speech, confusion, seizures, incoordination. PSYCHIATRIC: No concerning psychosocial issues. 12 point review of systems is negative except for those stated above Patient History Medical History Abnormal chest x-ray COVID-19 (02/19/21) Diverticulosis GERD (gastroesophageal reflux disease) Headache Hearing loss Hyperlipidemia Hypertension Osteoarthritis Seasonal allergies Surgical History Anesthesia Cataracts, bilateral History of arthroplasty of right knee (05/16/21) History of colonoscopy History of endometrial ablation (~04/2003) History of esophagogastroduodenoscopy (EGD) History of hemorrhoidectomy (~09/2002) History of tonsillectomy Family History Father Heart disease Mother Suicide Brother Cancer Sister Melanoma Grandfather History of heart attack Grandmother Cancer Social History marital status: household members: family and children Smoking Status: Former smoker alcohol intake: current substance use type: does not use Smoking Status: Former smoker tobacco type: cigarettes alcohol intake frequency: holidays/special occasions only Substance Use Type: does not use Exam Narrative Exam Narrative: GENERAL: [67] year old patient appears stated age. Well-developed patient, in mild distress. HEAD: Atraumatic. Normocephalic. EYES: Pupils equal round and reactive. Extraocular motions intact. No scleral icterus. No injection or drainage. ENT: Nose without bleeding, purulent drainage. Throat without erythema, tonsillar hypertrophy or exudate. Airway patent. NECK: Trachea midline. Non tender CARDIOVASCULAR: Regular rate and rhythm without murmurs, gallops, or rubs. RESPIRATORY: Clear to auscultation. Breath sounds equal bilaterally. No wheezes, rales, or rhonchi. GASTROINTESTINAL: Abdomen soft, non-tender, nondistended. EXTREMITIES: No edema or joint tenderness. BACK: Nontender without deformity or crepitance. No flank tenderness. NEURO: AOx3. SKIN: No rash or erythema of visible areas Initial Vital Signs Initial Vital Signs: Vital Signs Temperature 97.0 F L 07/14/22 17:35 Pulse Rate 117 H 07/14/22 17:35 Respiratory Rate 22 07/14/22 17:35 Blood Pressure 190/93 H 07/14/22 17:35 Pulse Oximetry 99 07/14/22 17:35 Oxygen Delivery Method 07/14/22 17:35 Course Orders Ordered: ED Orders 07/14/22 17:40 Complete Blood Count AUTO DIFF Stat Comprehensive Metabolic Panel Stat Lipase Stat 07/14/22 17:52 CT abdomen pelvis w con Stat 07/14/22 18:04 EKG-12 Lead Stat 07/14/22 18:14 Urinalysis and Microscopic Stat Discontinued Medications Hydrocodone Bitart/Acetaminophen (Hydrocodone/Acet 5/325 Prepack) 1 bottle MISC SEEINSTR ONE Stop: 07/14/22 19:58 Last Admin: 07/14/22 20:09 Dose: 1 bottle Documented By: HERMILA Sodium Chloride (Normal Saline 0.9%) 1,000 mls @ 1,000 mls/hr IV BOLUS ONE Stop: 07/14/22 18:51 Last Infusion: 07/14/22 20:02 Dose: 0 mls/hr Documented By: Admin: 07/14/22 18:27 Dose: 1,000 mls/hr Documented By: RB Ondansetron HCl (Ondansetron 4 Mg Odt Prepack) 1 bottle MISC SEEINSTR ONE Stop: 07/14/22 19:58 Last Admin: 07/14/22 20:09 Dose: 1 bottle Documented By: HERMILA Consultations Consultation #1: discussed renal cyst with Dr. Cespedes (urology) no need for anything specific at this time, highly unlikely to be source of pain, recommends repeat Renal US in 6-9 months Vital Signs Vital signs: Vital Signs - 8 hr 07/14/22 17:35 07/14/22 17:35 07/14/22 17:49 Temperature 97.0 F L Pulse Rate 117 H 109 H 98 H Respiratory Rate 22 Blood Pressure 190/93 H Pulse Oximetry 99 100 98 Oxygen Delivery Method Room Air 07/14/22 17:49 07/14/22 18:00 07/14/22 18:00 Temperature Pulse Rate 102 H Respiratory Rate Blood Pressure 168/99 H 172/91 H Pulse Oximetry 100 Oxygen Delivery Method 07/14/22 18:24 07/14/22 18:24 07/14/22 18:24 Temperature Pulse Rate 103 H 102 H Respiratory Rate 18 Blood Pressure 183/111 H 183/111 H Pulse Oximetry 98 100 Oxygen Delivery Method 07/14/22 18:30 07/14/22 18:30 07/14/22 19:00 Temperature Pulse Rate 98 H 97 H Respiratory Rate 14 23 Blood Pressure 168/90 H Pulse Oximetry 98 100 Oxygen Delivery Method 07/14/22 19:25 07/14/22 19:25 07/14/22 19:30 Temperature Pulse Rate 100 H 96 H Respiratory Rate 17 18 Blood Pressure 180/95 H Pulse Oximetry 99 100 Oxygen Delivery Method 07/14/22 20:00 Temperature Pulse Rate 99 H Respiratory Rate 25 H Blood Pressure Pulse Oximetry 99 Oxygen Delivery Method MDM - Abdominal Pain Lab Data Result diagrams: 07/14/22 17:40 07/14/22 17:40 Labs: Lab Results 07/14/22 07/14/22 07/14/22 Range/Units 17:40 17:40 18:14 WBC 7.6 (4.5-11.0) X10^3/uL RBC 4.71 (4.0-5.2) X10^6/uL Hgb 14.6 (12.0-16.0) g/dL Hct 41.7 (36-46) % MCV 88.5 (80-100) fL MCH 31.0 (26-34) PG MCHC 35.0 (30-36) % RDW 13.2 (11.6-14.8) % Plt Count 367 (150-400) X10^3/uL Neut % (Auto) 57.7 (50-75) % Lymph % (Auto) 28.4 (25-40) % Russell % (Auto) 11.0 (3-14) % Eos % (Auto) 2.6 (2-4) % Baso % (Auto) 0.3 (0-2) % Neut # (Auto) 4400 (5507-0847) /uL Lymph # (Auto) 2200 (5740-5702) /uL Russell # (Auto) 800 (0-900) /uL Eos # (Auto) 200 (0-450) /uL Baso # (Auto) 0 (0-100) /uL Sodium 136 L (137-145) mmol/L Potassium 3.9 (3.4-5.1) mmol/L Chloride 97 L (98-107) mmol/L Carbon Dioxide 29 (22-32) mmol/L BUN 19 H (7-17) mg/dL Creatinine 0.93 (0.52-1.04) mg/dL Estimated GFR > 60 (>60) mL/min BUN/Creatinine Ratio 20.4 (6-22) Glucose 93 (80-110) mg/dL Calcium 10.3 H (8.4-10.2) mg/dL Total Bilirubin 0.5 (0.2-1.3) mg/dL AST 23 (14-36) IU/L ALT 15 (<35) IU/L Alkaline Phosphatase 84 (38-126) U/L Total Protein 7.6 (6.3-8.2) g/dL Albumin 4.7 (3.5-5.0) g/dL Globulin 2.9 (1.7-4.1) g/dL Albumin/Globulin Ratio 1.6 (1.0-2.8) Lipase 65 (23-300) U/L Urine Color Yellow Urine Appearance Clear Urine pH 6.5 (4.5-8.0) Ur Specific [place] <=1.005 (1.000-1.035) Urine Protein Negative (Negative) Urine Glucose (UA) Negative (Negative) g/dL Urine Ketones Negative (NEGATIVE) Urine Occult Blood Negative (Negative) Urine Nitrate Negative (Negative) Urine Bilirubin Negative (NEGATIVE) Urine Urobilinogen 0.2 (0.2) E.U./dL Ur Leukocyte Esterase Negative (NEGATIVE) Urine RBC None seen (0-5/HPF) Urine WBC 0-1/hpf (0-5/HPF) Ur Squamous Epith Cells 0-1 /hpf (0-5/HPF) Urine Bacteria None seen (None) Ur Culture Indicated? Cult not indicated Imaging Data CT scan - abdomen/pelvis: Radiologist's Impression: ? Chart Viewer Diagnostics Subcategory All Activity ??:?? All Time ??:?? All Subcategories Filter Laboratory Imaging Microbiology Pathology Blood Bank Tests Cardiovascular Other Specialty DATE TYPE STATUS REF RANGE/AUTHOR Hx 07/14/22 17:52 Abdomen/Pelvis CT Signed Robert Negron 07/12/22 14:48 Renal Ultrasound Signed Josiah Cabrera 09/17/21 09:37 Bone Densitometry ? 06/13/21 00:00 Knee X-Ray Signed Kasey Lovell 05/16/21 09:34 Telemetry Strips ? 05/16/21 00:00 Knee X-Ray Signed Humberto Huggins 03/17/21 13:08 Mammogram Screening Signed Hao Sosa 11/25/19 12:22 Vascular Ultrasound Signed Nick Flanagan 02/15/19 19:51 Knee X-Ray Signed Hetal Jensen 02/15/19 19:51 Knee X-Ray Signed Hetal Jensen 02/09/19 16:54 Lumbar Spine X-Ray Signed Gray Castaneda 10/29/17 09:16 DI Result CC XR chest 10/02/17 09:16 DI Result CC XR chest Glo Rodriguez R ED 67, F?1955 MRN#? [id number] DEP ER,?[facility] ED??? 162.56cm 67.222kg BMI: 25.4kg/m? Abdominal Pain Acc#? [id number] Resus Status Not Ordered Hx Avail Special Indicators No Data to Display Home Meds Not Confirmed Prescription Monitoring Program MEDICATIONS (INSTRUCTIONS) LAST TAKEN Active ??ascorbic acid (vitamin C) 1,000 mg tablet ??1 gramPODAILY ??aspirin ??81 mgPOBID#60 tabs ??atorvastatin 20 mg tablet ??20 mgPODAILY#90 tabs ??ozcwnrxgzs-vjumeazqlhdnf-njtqvwiv 50 mg-325 mg-40 mg tablet ??2 tabPOQ4-6HPRNMigraines#360 tabs ??calcium carbonate 600 mg-vitamin D3 20 mcg (800 unit) chewable tablet ??1 tabPODAILY ??cholecalciferol (vitamin D3) 50 mcg (2,000 unit) capsule ??2,000 unitPODAILY ??diazepam 10 mg tablet ??See Rx Instructionstravel anxiety ??famotidine 20 mg tablet ??20 mgPOQPM#90 tabs ??fenofibrate micronized 134 mg capsule ??See Rx Instructions ??hydrochlorothiazide 25 mg tablet ??25 mgPODAILY#90 tabs ??ketorolac 10 mg tablet ??10 mgPOTIDPRNpain#270 tabs ??loratadine 10 mg tablet ??10 mgPODAILY ??losartan 50 mg tablet ??50 mgPODAILY#90 tabs ??meclizine 25 mg tablet ??25 mgPODAILYPRNdizziness#30 tabs ??multivit with min-folic acid-lutein 400 mcg-250 mcg chewable tablet ??1 tabPODAILY ??omeprazole 40 mg capsule,delayed release ??40 mgPODAILY#90 caps ??polyethylene glycol 3350 ??17 gPODAILYPRNConstipation#14 ea ??pseudoephedrine HCl ??60 mgPOQAM *Product no longer available ??psyllium ??1 tspPODAILY Allergies TITUS Inhibitors Cough Problems ? ONSET Acute left flank pain Renal cyst Left flank pain Chronic daily headache Essential hypertension Hyperlipidemia Hypertriglyceridemia Rodriguez's esophagus with esophagitis Cough due to TITUS inhibitor Leg weakness Knee osteoarthritis Vital Signs 07/14/22 20:00 Pulse 99?H Resp 25?H O2 Sat 99? Diagnostics Reports Glo Rodriguez??67??F??1955 ? Allergy/Adv: TITUS Inhibitors Close Abdomen/Pelvis CT (Signed) Robert Negron - 07/14/22 Renal Ultrasound (Signed) Josiah Cabrera - 07/12/22 Bone Densitometry 09/17/21 Knee X-Ray (Signed) Kasey Lovell - 06/13/21 Telemetry Strips 05/16/21 Knee X-Ray (Signed) Humberto Huggins - 05/16/21 Mammogram Screening (Signed) SosaHao - 03/17/21 Vascular Ultrasound (Signed) Nick Flanagan - 11/25/19 Knee X-Ray (Signed) Hetal Jensen - 02/15/19 Knee X-Ray (Signed) Hetal Jensen - 02/15/19 Lumbar Spine X-Ray (Signed) Gray Castaneda - 02/09/19 DI Result CC 10/29/17 DI Result CC 10/02/17 Launch?[place] [address] CT Scan Report Signed Patient: Glo Rodriguez MR#: [id number] : 1955 Acct:[id number] Age/Sex: 67 / F Date of Service: 07/14/22 Loc: ED Accession Number: [id number] ?? Procedure: CT abdomen pelvis w con Ordering Provider: Van Martinez D.O. PROCEDURE:? CT ABDOMEN PELVIS W CON ? INDICATIONS:? cyst seen on L kidney on US CT recommended ? TECHNIQUE:? After the administration of intravenous contrast, axial sections acquired from the lung bases to the pubic symphysis.? Coronal and sagittal reformats were performed.? For radiation dose reduction, the following was used:? automated exposure control, adjustment of mA and/or kV according to patient size.? ? COMPARISON:? None. ? FINDINGS:? Image quality:? Excellent.? ? Lung bases:? 3 mm nodule within left posterolateral lung base. Heart:? No significant findings. ? ABDOMEN: Liver:? Unremarkable.? ? Gallbladder:? Is mildly distended without evidence of wall thickening.? ? Biliary ducts:? Unremarkable.? ? Pancreas:? Unremarkable.? ? Spleen:? Unremarkable.? ? Adrenal Glands:? Unremarkable.? ? Kidneys and Ureters:? Bilateral renal cysts.? Largest of these is within the left interpolar kidney anteriorly measuring 54 mm. ? Stomach and Bowel:? Stomach, small bowel loops, and colon are unremarkable.? Nor mal appendix. Peritoneum:? No abnormal intraperitoneal fluid.? No free air.? ? Ventral Wall: ? No hernias.? Abdominal Nodes:? No retroperitoneal or mesenteric adenopathy by size criteria.? Vessels:? Aorta and inferior vena cava are normal in size.? ? PELVIS: Pelvic Organs:? Unremarkable.? ? Bladder:? Unremarkable.? ? Pelvic Nodes: No enlarged lymph nodes.? Miscellaneous: No hernias are seen. ? ? ? Bones:? Unremarkable.? IMPRESSION:? 1. No acute process. 2. Normal appendix. 3. Left lower lobe base nodule.? Further assessment with nonemergent outpatient follow-up chest CT with intravenous contrast is recommended.? ? ? Dictated by: Robert Negron M.D. on 07/14/2022 at 19:08 ? ? Approved by: Robert Negron M.D. on 07/14/2022 at 19:10 ? [facility] Narrative Medical decision making narrative: Multiple etiologies for patient's symptoms considered include, but not limited to: [Bowel obstruction versus kidney stone versus diverticulitis versus other Patient's symptoms are essentially not present at the time of her visit and she states the pain really only becomes a problem at night History, physical exam, labs, imaging, have been reassuring. Findings and discharge diagnosis discussed with patient/family followed by maira balization of understanding Return precautions discussed with patient/family whom verbalize understanding. Pain has been well controlled and patient is tolerating oral hydration. Discharge Plan Departure Patient Disposition: Home Clinical Impression: Acute left flank pain, Renal cyst Activity Restrictions/Additional Instructions: *You have been diagnosed with [left flank pain, constipation, renal cyst. As we discussed your history, physical exam, labs and imaging are very reassuring and there is no evidence of any diagnosis that would require a specific or immediate intervention] *What to do: *Take over the counter medications as directed: 1. Metamucil - is a bulk forming laxative and adds fiber 2. Colace - softens your stool 3. Dulcolax suppository - stimulates your bowels *Follow up with your primary care provider in 2-3 days, call for appointment *Return to ER if you should have any new, worsening or concerning symptoms *Drink plenty of water and eat foods high in fiber *Stay as active as you can as this helps move your bowels as well *As we discussed, I called Dr. Cespedes (urology) to discuss how to proceed with your renal cysts. He states that he would recommend a repeat renal ultrasound in 6-9 months to track the size and states that typically nothing interventional happens until they are at least 10 cm or larger. * also of note, an incidental finding of a small 3 mm nodule in your left lung was noted. Radiology recommends Dr. Gallo follow this with a non-emergent CT to futher assess. *Return to Emergency Department if you should have any new, worsening or concerning symptoms, such as [fever greater than 101 F, shaking chills, worsening pain, persistent vomiting or other bothersome symptoms] Prescriptions: No Action diazepam 10 mg tablet See Rx Instructions PO BID PRN (Reason: travel anxiety) Qty: 10 0RF Dose Instruction: PO BID PRN; Rx Instructions: Take 1/2 to 1 tab up to twice daily as needed for travel anxiety. meclizine 25 mg tablet 25 mg PO DAILY PRN (Reason: dizziness) Qty: 30 3RF llfnbjttye-nzadcsrqqwpyb-zoze [Esgic] 50-325-40 mg tablet 2 tab PO Q4-6H PRN (Reason: Migraines) Qty: 360 3RF Rx Instructions: do not exceed 6 tabs per 24 hrs atorvastatin 20 mg tablet 20 mg PO DAILY Qty: 90 3RF famotidine 20 mg tablet 20 mg PO QPM Qty: 90 3RF fenofibrate micronized 134 mg capsule See Rx Instructions .ROUTE .COMPLEX Qty: 90 3RF Dose Instruction: TAKE ONE CAPSULE BY MOUTH ONE TIME DAILY Rx Instructions: TAKE ONE CAPSULE BY MOUTH ONE TIME DAILY hydrochlorothiazide 25 mg tablet 25 mg PO DAILY Qty: 90 3RF losartan 50 mg tablet 50 mg PO DAILY Qty: 90 3RF omeprazole 40 mg capsule,delayed release(DR/EC) 40 mg PO DAILY Qty: 90 3RF ketorolac 10 mg tablet 10 mg PO TID PRN (Reason: pain) Qty: 270 3RF loratadine [Allergy Relief (loratadine)] 10 mg tablet 10 mg PO DAILY ascorbic acid (vitamin C) 1,000 mg tablet 1 gram PO DAILY Caltrate 600 plus D 600 mg (1,500 mg)-800 unit tablet,chewable 1 tab PO DAILY psyllium powder 1 tsp PO DAILY cholecalciferol (vitamin D3) 2,000 unit capsule 2,000 unit PO DAILY Centrum Silver 400-250 mcg tablet,chewable 1 tab PO DAILY pseudoephedrine HCl 30 mg Capsule 60 mg PO QAM aspirin 81 mg Tablet,Delayed Release (Dr/Ec) 81 mg PO BID Qty: 60 0RF polyethylene glycol 3350 17 gram Powder In Packet 17 g PO DAILY PRN (Reason: Constipation) Qty: 14 0RF Referrals: Chase Gallo MD [Primary Care Provider] - Visit Report Forms: Patient Portal/API
[2022-07-14 19:02] LABS: pH Urine UA 6.5 (4.5-8.0)
[2022-07-14 19:03] LABS: Bacteria Urine None Seen; Culture Indicated Urine Cult Not Indicated; RBC Urine None Seen (0-5/HPF); Squamous Epithelial Cell Urine 0-1 /HPF (0-5/HPF); WBC Urine 0-1/HPF (0-5/HPF)
[2022-07-14] MEDS: HYDROCODONE/ACET 5/325 PREPACK 1 BOTTLE MISC (20:09)
[2022-07-14] MEDS: ONDANSETRON 4 MG ODT PREPACK 1 BOTTLE MISC (20:09)
== END 2022-07-14 20:17 | disposition home or self-care (01) ==
PROVIDERS: Emergency Medicine; Emergency Provider Emergency Medicine; PCP Family Medicine
DX: N28.1 Cyst of kidney, acquired (principal); R10.9 Unspecified abdominal pain
CPT/HCPCS: 36415; 74177; 80053; 81001; 83690; 85025; 93005; 93010; 96360; 96361; 99284; Q9967

== ENCOUNTER → 2023-05-02 10:45 | Outpatient (CLI) | payer MEDICARE, SELFPAY ==
[2021-08-01 13:10] VITALS: BMI 24.5
--- NOTE | 2023-05-02 10:47 | DI.CT.S_ITS ---
PROCEDURE: CT CHEST W CON INDICATIONS: Lower left Lobe nodule TECHNIQUE: After the administration of intravenous contrast, 5 mm thick sections acquired from the pulmonary apices to the posterior costophrenic angles. 1 mm axial lung, 5 mm thick coronal and sagittal reformats and 7 mm axial MIP were acquired. For radiation dose reduction, the following was used: automated exposure control, adjustment of mA and/or kV according to patient size. COMPARISON: [facility], CT, CT ABDOMEN PELVIS W CON, 07/14/2022, 18:45. FINDINGS: Image quality: Excellent. Lungs and pleura: A 5 mm pulmonary nodule is present at the lateral right lung base (series 3/image 210). This was visualized on the prior study but incompletely characterized given the difference in slice thickness. 4 mm pulmonary nodule is present in the anterior aspect of the right middle lobe (series 3/image 188). 5 mm pulmonary nodule is present within the right middle lobe (series 3/image 150). 4 mm pulmonary nodule is present within the posterior medial aspect of the right lower lobe (series 3/image 164). No acute airspace opacities. No pleural effusion or pneumothorax. Mediastinum: Heart size is normal. No pericardial effusion. No mediastinal or hilar adenopathy by size criteria. Thoracic aorta and central pulmonary arteries are normal in size. Esophagus is normal in caliber. No hiatal hernia. Bones and chest wall: No suspicious bony lesions. No vertebral body compression fractures. No axillary or supraclavicular adenopathy by size criteria. Thyroid gland is unremarkable. Abdomen: Visualized upper abdominal solid organs appear normal. Upper abdominal bowel loops are normal in caliber. IMPRESSION: 1. Multiple 4 and 5 mm pulmonary nodules as above. In a low risk patient, no further follow-up recommended. In a high-risk patient, optional 12 month follow-up recommended. Please see follow-up guidelines below. Fleischner Society criteria for SOLID lung nodule followup. Nodule size (mm)Low-risk patientHigh-risk patient<6 (single or multiple)No routine followup.Optional CT at 12 months. 6-8 (single or multiple)CT at 6-12 months, then optional CT at 18-24 mo.CT at 6-12 months, then CT at 18-24 months. >8 (single)CT at 3 months, PET-CT, or biopsy. Same as for low-risk pts. >8 (multiple)CT at 3-6 months, then optional CT at 18-24 mo.CT at 3-6 months, then CT at 18-24 months. Fleischner Society criteria for SUB-SOLID lung nodule followup. Solitary pure ground-glass nodules<6 mm (ground glass or part solid)No followup needed. 6 mm or larger (ground glass)CT at 6-12 months to confirm persistence, then CT every 2 years until 5 years.6 mm or larger (part solid)CT at 3-6 months to confirm persistence, then annual CT until 5 years if unchanged and solid component remains <6 mm. Multiple sub-solid nodules<6 mmCT at 3-6 months, then CT consider at 2 & 4 years for high risk patients. [address] at 3-6 months. Subsequent management based on most suspicious lesions. Recommendations do not apply to lung cancer screening, patients with immunosuppression, or patients with known primary cancer. Dictated by: Rita Coates M.D. on 05/02/2023 at 14:17 Approved by: Rita Coates M.D. on 05/02/2023 at 14:24
--- NOTE | 2023-05-02 10:47 | DI.US.S_ITS ---
PROCEDURE: US RENAL COMPLETE INDICATIONS: FOLLOW UP LEFT KIDNEY CYST TECHNIQUE: Real-time scanning was performed of the kidneys and bladder, with image documentation. COMPARISON: [facility], , US RENAL COMPLETE, 07/12/2022, 15:25. FINDINGS: Kidneys: Kidneys are normal in size. Right kidney measures 10.0 cm long; left kidney measures 11.1 cm long. Right renal cortical thickness is 1.7 cm; left renal cortical thickness is 1.7 cm. Renal cortical echotexture is normal. No hydronephrosis or nephrolithiasis. No suspicious solid mass lesions. There is a simple cyst at the lower pole of the left kidney which measures 5.0 x 4.1 x 4.4 cm on the current study and previously measured 5.0 x 3.7 x 3.7 cm. Bladder: Pre-void bladder volume is 122 mL. Post-void residual is 24 mL. Pre-void images demonstrate no intraluminal masses or stones. On pre-void images, bilateral ureteral jets are noted with color Doppler interrogation. (Of note, ureteral jets may not be detectable in up to 25% of cases due to insufficient differences in specific gravity between ureteral and bladder urine). Miscellaneous: No free pelvic fluid. IMPRESSION: 1. No hydronephrosis. 2. Mild postvoid residual. 3. Stable left renal cyst. Dictated by: Rita Coates M.D. on 05/02/2023 at 14:15 Approved by: Rita Coates M.D. on 05/02/2023 at 14:17
[2023-05-02 11:18] LABS: BUN Creatinine Ratio 29.6 (6-22); Blood Urea Nitrogen 21 mg/dL (7-17); Calcium 9.8 mg/dL (8.4-10.2); Carbon Dioxide 33 mmol/L (22-32); Chloride 101 mmol/L (98-107); Estimated Glomerular Filt Rate > 60 mL/min (>60); Glucose 116 mg/dL (80-110); HEMOLYSIS < 15 (0-50); Potassium 3.7 mmol/L (3.4-5.1); Sodium 142 mmol/L (137-145)
== END ==
PROVIDERS: PCP Family Medicine; Referring Provider Family Medicine; Visit Provider Family Medicine
DX: N28.1 Cyst of kidney, acquired (principal); R91.8 Other nonspecific abnormal finding of lung field; E78.1 Pure hyperglyceridemia; E78.5 Hyperlipidemia, unspecified; I10 Essential (primary) hypertension
CPT/HCPCS: 36415; 71260; 76770; 80048; Q9967

== ENCOUNTER → 2023-05-12 10:50 | Outpatient (CLI) | payer MEDICARE, SELFPAY ==
[2021-08-01 13:10] VITALS: BMI 24.5
--- NOTE | 2023-05-12 10:50 | DI.US.S_ITS ---
PROCEDURE: [facility] VENOUS LOW EXTREM LT INDICATIONS: LEFT LEG PAIN TECHNIQUE: Real-time imaging, as well as color and pulse Doppler interrogation, were performed of the lower extremity deep veins from the inguinal ligament to the popliteal fossa. COMPARISON: [facility], [facility] VENOUS LOW EXTREM LT, 11/25/2019, 12:36. FINDINGS: The common femoral, femoral and popliteal veins are normally compressible, and free of intraluminal thrombus. Color and pulse Doppler demonstrate normal phasic intraluminal flow. There is normal augmentation response to distal compression maneuver. IMPRESSION: No evidence of left lower extremity deep venous thrombosis. Dictated by: aZckary Peralta M.D. on 05/12/2023 at 14:14 Approved by: Zackary Peralta M.D. on 05/12/2023 at 14:17
== END ==
PROVIDERS: PCP Family Medicine; Referring Provider Family Medicine; Visit Provider Family Medicine
DX: M79.605 Pain in left leg (principal)
CPT/HCPCS: 93971

== ENCOUNTER → 2024-05-20 15:06 | Outpatient (CLI) | payer MEDICARE, SELFPAY ==
[2021-08-01 13:10] VITALS: BMI 24.5
[2024-05-20 16:10] LABS: Add Manual Diff / Slide Review NO; Basophils Absolute Auto 0 /uL (0-100); Basophils Percent Auto 0.2 % (0-2); Eosinophils Absolute Auto 200 /uL (0-450); Eosinophils Percent Auto 2.8 % (2-4); Hematocrit 39.5 % (36-46); Hemoglobin 13.3 g/dL (12.0-16.0); Lymphocytes Absolute Auto 1900 /uL (1100-4500); Lymphocytes Percent Auto 24.7 % (25-40); Mean Corpuscular HGB Conc 33.6 % (30-36); Mean Corpuscular Hemoglobin 30.6 PG (26-34); Mean Corpuscular Volume 90.9 fL (80-100); Monocytes Absolute Auto 800 /uL (0-900); Monocytes Percent Auto 9.8 % (3-14); Neutrophils Absolute Auto 4800 /uL (1500-7000); Neutrophils Percent Auto 62.5 % (50-75); Platelet Count 417 X10^3/uL (150-400); Red Blood Cell Count 4.35 X10^6/uL (4.0-5.2); Red Cell Distribution Width 13.9 % (11.6-14.8); White Blood Cell Count 7.7 X10^3/uL (4.5-11.0)
[2024-05-20 16:17] LABS: Hemoglobin A1C% w Est Avg Glu 5.4 % (4.0-6.0)
[2024-05-20 16:50] LABS: Alanine Aminotransferase 16 IU/L (<35); Albumin 4.2 g/dL (3.5-5.0); Albumin Globulin Ratio 1.8 (1.0-2.8); Alkaline Phosphatase 82 U/L (38-126); Aspartate Aminotransferase 25 IU/L (14-36); BUN Creatinine Ratio 27.8 (6-22); Bilirubin Total 0.4 mg/dL (0.2-1.3); Blood Urea Nitrogen 20 mg/dL (7-17); Calcium 9.9 mg/dL (8.4-10.2); Carbon Dioxide 31 mmol/L (22-32); Chloride 104 mmol/L (98-107); Cholesterol 154 mg/dL (140-199); Estimated Glomerular Filt Rate > 60 mL/min (>60); Globulin 2.3 g/dL (1.7-4.1); Glucose 91 mg/dL (80-110); HDL Cholesterol 62 mg/dL (40-60); HEMOLYSIS < 15 (0-50); LDL Cholesterol Calculated 70 mg/dL (<100); Potassium 4.3 mmol/L (3.4-5.1); Sodium 139 mmol/L (137-145); Total Protein 6.5 g/dL (6.3-8.2); Triglycerides 112 mg/dL (35-150)
[2024-05-20 17:18] LABS: Thyroid Stimulating Hormone 1.69 uIU/mL (0.47-4.68)
== END ==
PROVIDERS: PCP Family Medicine; Referring Provider Family Medicine; Visit Provider Family Medicine
DX: E78.5 Hyperlipidemia, unspecified (principal); Z13.1 Encounter for screening for diabetes mellitus; I10 Essential (primary) hypertension; E78.1 Pure hyperglyceridemia
CPT/HCPCS: 36415; 80053; 80061; 83036; 84443; 85025

== ENCOUNTER → 2024-08-12 13:27 | Outpatient (CLI) | payer MEDICARE, SELFPAY ==
[2021-08-01 13:10] VITALS: BMI 24.5
--- NOTE | 2024-08-12 13:28 | DI.MG.S_ITS ---
BILATERAL DIGITAL SCREENING MAMMOGRAM 3D/2D WITH CAD: 08/12/2024 CLINICAL: Routine screening. Comparison is made to exams dated: 03/17/2021 mammogram - [facility], 01/24/2017 mammogram, and 11/12/2014 mammogram - [facility]. There are scattered areas of fibroglandular density (category b / 25%-50% glandular tissue). Current study was also evaluated with a Computer Aided Detection (CAD) system. No significant masses, calcifications, or other findings are seen in either breast. There has been no significant interval change. IMPRESSION: NEGATIVE There is no mammographic evidence of malignancy. A 1 year screening mammogram is recommended. Based on the Tyrer Cuzick model (a risk assessment model) the patient's lifetime risk is 3.4% and her 10 year risk is 2.3%. According to the ACR, ACS, and NCCN guidelines, an annual breast MRI exam along with mammogram is recommended if the patient's lifetime risk is 20% or greater. This exam was interpreted at Station ID: [id number]. NOTE: For mammograms, a report in lay terms will be sent to the patient. Approximately 15% of breast malignancies will not be visualized mammographically. In the management of a palpable breast mass, a negative mammogram must not discourage biopsy of a clinically suspicious lesion. Electronically Signed By: Hao nance/[email or web address]:08/13/2024 20:53:14 letter sent: Normal Exam ACR BI-RADS Category 1: Negative
== END ==
PROVIDERS: PCP Family Medicine; Referring Provider Family Medicine; Visit Provider Family Medicine
DX: Z12.31 Encounter for screening mammogram for malignant neoplasm of breast (principal)
CPT/HCPCS: 77063; 77067

== ENCOUNTER 2025-04-07 10:08 | Day surgery (SDC) | payer MEDICARE, SELFPAY ==
[2021-08-01 13:10] VITALS: BMI 24.5
[2025-04-07] MEDS: LACTATED RINGERS 1,000 ML 42 ML IV (12:05)
[2025-04-07 12:09] VITALS: BP 178/98; PULSE 24; RESP 96; TEMP 36.2
--- NOTE | 2025-04-07 12:15 | PM.PREOP ---
Pre-operative Note COVID-19 COVID-19 status: Not tested Interval Note History & Physical reviewed/Exam performed by Physician: Yes Changes to H&P: No ASA Class (for procedural sedation): II
--- NOTE | 2025-04-07 13:14 | P.OP.COLON_ITS ---
Operative Date/Time/Diagnoses Date of procedure: 04/07/25 Time of procedure: 13:14 Pre-op diagnosis: Hematochezia Post-op diagnosis: same Procedure & Clinicians Study performed: Colonoscopy Same procedure as scheduled: Yes Surgeon: Enmanuel Wagner Procedure Notes Procedure in detail: Surgeon: Enmanuel Wagner MD Anesthesia: Janett Yadav [employer] Procedure: The patient was brought to the endoscopy suite, placed in left lateral decubitus position. The patient was connected to monitoring devices. A time-out was performed. Sedation was administered. Once the patient was adequately sedated, a digital rectal exam was performed and was normal. The scope was then inserted and advanced to the cecum where the appendiceal orifice was identified and photographed. The scope was then slowly withdrawn over greater than 6 minutes. The mucosa was thoroughly inspected. No polyps or other abnormalities were found. The scope was retroflexed in the rectum. Internal hemorrhoids were noted. The scope was straightened and removed. The patient was awakened and brought to recovery. Scope withdrawal time: 7 minutes Sedation time: 14 minutes EBL: 0 Findings: Internal hemorrhoids Post-procedure Recommendations: Colonoscopy in 10 years Disposition: PACU
[2025-04-07 13:16] VITALS: BP 145/74; PULSE 98; RESP 14; TEMP 36.4; O2SAT 99
[2025-04-07 13:21] VITALS: BP 128/80; PULSE 91; RESP 18; O2SAT 99
[2025-04-07 13:26] VITALS: BP 145/84; PULSE 104; RESP 20; TEMP 36.4; O2SAT 100
== END 2025-04-07 13:46 | disposition home or self-care (01) ==
PROVIDERS: PCP Family Medicine; Referring Provider Surgery; Visit Provider Surgery
PROC: 0DJD8ZZ Inspection of Lower Intestinal Tract, Via Natural or Artificial Opening Endoscopic (ICD-10-PCS; CPT 45378; principal; 2025-04-07 11:30)
DX: K92.1 Melena (principal); K64.8 Other hemorrhoids; Z87.891 Personal history of nicotine dependence
CPT/HCPCS: 45378; J2704

== ENCOUNTER → 2025-09-01 11:29 | Outpatient (CLI) | payer MEDICARE, SELFPAY ==
[2021-08-01 13:10] VITALS: BMI 24.5
[2025-09-01 12:11] LABS: Add Manual Diff / Slide Review NO; Hematocrit 40.4 % (36-46); Hemoglobin 13.9 g/dL (12.0-16.0); Lymphocytes Absolute Auto 1700 /uL (1100-4500); Mean Corpuscular HGB Conc 34.3 % (30-36); Mean Corpuscular Hemoglobin 30.6 PG (26-34); Mean Corpuscular Volume 89.1 fL (80-100); Platelet Count 449 X10^3/uL (150-400)
[2025-09-01 12:51] LABS: Alanine Aminotransferase 15 IU/L (<35); Albumin 4.4 g/dL (3.5-5.0); Albumin Globulin Ratio 1.8 (1.0-2.8); Alkaline Phosphatase 74 U/L (38-126); Blood Urea Nitrogen 23 mg/dL (7-17); Calcium 9.7 mg/dL (8.4-10.2); Carbon Dioxide 29 mmol/L (22-32); Chloride 101 mmol/L (98-107); Cholesterol 188 mg/dL (140-199); Estimated Glomerular Filt Rate > 60 mL/min (>60); Globulin 2.4 g/dL (1.7-4.1); Glucose 96 mg/dL (70-99); HDL Cholesterol 60 mg/dL (40-60); HEMOLYSIS < 15 (0-50); Potassium 4.5 mmol/L (3.4-5.1); Sodium 139 mmol/L (137-145); Total Protein 6.8 g/dL (6.3-8.2); Triglycerides 200 mg/dL (35-150)
[2025-09-01 13:12] LABS: Thyroid Stimulating Hormone 2.49 uIU/mL (0.47-4.68)
== END ==
PROVIDERS: PCP Family Medicine; Referring Provider Family Medicine; Visit Provider Family Medicine
DX: I10 Essential (primary) hypertension (principal); R51.9 Headache, unspecified; E78.5 Hyperlipidemia, unspecified; E78.1 Pure hyperglyceridemia; K22.70 Barrett's esophagus without dysplasia; K20.90 Esophagitis, unspecified without bleeding
CPT/HCPCS: 36415; 80053; 80061; 84443; 85025

== ENCOUNTER → 2025-09-08 11:27 | Outpatient (CLI) | payer MEDICARE, SELFPAY ==
[2021-08-01 13:10] VITALS: BMI 24.5
--- NOTE | 2025-09-08 11:28 | DI.MG.S_ITS ---
MM screening mammo BI: 09/08/2025. BI-RADS: 1 CLINICAL: 70-year old female for bilateral screening mammogram. Tyrer-Cuzick lifetime risk of 4.4%. No personal or first-degree family history of breast cancer. The patient had a prior left breast biopsy. PRIOR EXAMS 08/12/2024, 03/17/2021. MAMMOGRAPHY TECHNIQUE: 2D and 3D (tomosynthesis) digital mammographic views obtained, with additional images as needed for full coverage. Current study was also evaluated with a Computer Aided Detection (CAD) system. DENSITY C. The breasts are heterogeneously dense, which may obscure small masses. MAMMOGRAPHY FINDINGS Bilateral: No suspicious mass, asymmetry, microcalcification, or other abnormality seen. IMPRESSION: * No evidence of malignancy. RECOMMENDATIONS Bilateral * Annual screening mammography. OVERALL ASSESSMENT CATEGORY BI-RADS-1: Negative. The [employer] recommends annual screening mammography beginning at age 40 for women with average risk of breast cancer. ELECTRONICALLY SIGNED: Khushi Clemens M.D. on 09/09/2025 at 02:52:24 PM PT Interpreting Station ID: [id number]
== END ==
PROVIDERS: PCP Family Medicine; Referring Provider Family Medicine; Visit Provider Family Medicine
DX: Z12.31 Encounter for screening mammogram for malignant neoplasm of breast (principal); R92.333 Mammographic heterogeneous density, bilateral breasts
CPT/HCPCS: 77063; 77067